=== PATIENT | male | born 1970 | race Caucasian/White ===

== ENCOUNTER → 2016-11-20 | Outpatient (CLI) | payer OTHER ==
[~2016-11-20] MED LIST: CALC05CR TOP; CIPR-250 PO; DRIS50002 PO; NORC5TAB PO; ROBA500T PO; TRAZ50TA4 PO; TRAZO50TA PO; TYLE325T5 PO; [UNRECOGNIZED DRUG - OTHER] TOP; [UNRECOGNIZED DRUG - REMARK] PO
[2016-11-20 13:47] LABS: BASO # 0.2 K/mm3 (0.0-0.2); BASO % 1.9 % (0.0-1.0); EOS # 0.4 K/mm3 (0.0-0.50); EOS % 3.6 % (0.0-3.0); LARGE UNSTAINED CELL # 0.3 K/mm3 (0.0-0.4); LARGE UNSTAINED CELL % 2.6 % (0.0-4.0); LYMPH # 3.4 K/mm3 (1.5-4.5); LYMPH % 26.8 % (24.0-44.0); MEAN CORPUSCULAR HEMOGLOBIN 31.6 pg (27.0-33.0); MEAN CORPUSCULAR HGB CONC 32.8 g/dl (32.0-36.5); MEAN CORPUSCULAR VOLUME 96.3 fl (80.0-96.0); MONO # 0.9 K/mm3 (0.0-0.8); MONO % 7.8 % (0.0-5.0); NEUTROPHILS # 6.7 K/mm3 (1.8-7.7); NEUTROPHILS % 57.3 % (36.0-66.0); PLATELET COUNT, AUTOMATED 229 k/mm3 (150-450); RED CELL DISTRIBUTION WIDTH 13.8 % (11.5-14.5); WHITE BLOOD COUNT 11.7 K/mm3 (4.0-10.0)
[2016-11-20 13:52] LABS: INR 0.97
[2016-11-20 14:16] LABS: ALBUMIN/GLOBULIN RATIO 1.25 (1.00-1.93); ALKALINE PHOSPHATASE 100 U/L (45-117); ALT/SGPT 26 U/L (12-78); ANION GAP 7 MEQ/L (8-16); AST/SGOT 13 U/L (15-37); BILIRUBIN,TOTAL 0.6 MG/DL (0.2-1.0); BLOOD UREA NITROGEN 10 MG/DL (7-18); CALCIUM LEVEL 9.5 MG/DL (8.5-10.1); CARBON DIOXIDE LEVEL 31 MEQ/L (21-32); CHLORIDE LEVEL 105 MEQ/L (98-107); CREATININE FOR GFR 1.05 MG/DL (0.70-1.30); GLOMERULAR FILTRATION RATE > 60.0 (>60); GLUCOSE, FASTING 104 MG/DL (70-105); POTASSIUM SERUM 4.4 MEQ/L (3.5-5.1); SODIUM LEVEL 143 MEQ/L (136-145); TOTAL PROTEIN 7.2 GM/DL (6.4-8.2)
== END ==
LOC: M LAB 12:44
PROVIDERS: ATTEND Neurological Surgery
DX: M47.896 Other spondylosis, lumbar region (principal)

== ENCOUNTER → 2016-12-06 | Day surgery (SDC) | payer OTHER ==
[~2016-12-06] VITALS: Ht 180.3 cm; Wt 97.5 kg
[~2016-12-06] MED LIST changes: +CEFUROXIME INJ 1.5 GM VIAL (J0697) As Ordered ONE; +CEFUROXIME SODIUM 1.5 GM in D5W MINI-BAG PLUS 50 ML IV ONE; +LIDOCAINE 1% MDV 20ML VIAL As Ordered ONE; +LIDOCAINE 2% INJ 100 MG/5 ML SDV (FOR ANES.) As Ordered ONE; +LR 1,000 ML IV SCH; +MIDAZOLAM INJ 2 MG/2 ML VIAL (J2250) As Ordered ONE; +NORCO, ANEXSIA 5/325MG TABLET (HYDROcodone/ACETAMINOPHEN) As Ordered ONE; +NORCO, ANEXSIA 5/325MG TABLET (HYDROcodone/ACETAMINOPHEN) PO PRN; +ONDANSETRON 4MG/2ML VIAL (J2405) As Ordered ONE; +ONDANSETRON 4MG/2ML VIAL (J2405) IV PRN; +PROPOFOL 200 MG/20 ML VIAL As Ordered ONE; +SEVOFLURANE INHAL SOLN 250 ML BTL As Ordered ONE; +dexameTHASONE 4 MG/ML 1ML VIAL (J1100) As Ordered ONE; +fentaNYL 100 MCG/2 ML INJECTION (J3010) As Ordered ONE; +fentaNYL 100 MCG/2 ML INJECTION (J3010) IV PRN; +methylPREDNISolone SUSP 40 MG/ML (DEPO-medrol) VIAL (J1030) As Ordered ONE; +methylPREDNISolone SUSP 40 MG/ML (DEPO-medrol) VIAL (J1030) XX ONE
[2016-12-06 11:00] VITALS: BP 117/79
--- NOTE | 2016-12-07 08:06 | RO ---
DATE OF PROCEDURE: 12/06/2016 PREPROCEDURE DIAGNOSIS: Right ulnar neuropathy, cubital tunnel level. POSTPROCEDURE DIAGNOSIS: Right ulnar neuropathy, cubital tunnel level. PROCEDURE: Release of the right ulnar nerve at the antecubital tunnel level with external neurolysis. SURGEON: Leonel Guillen MD HIGHBALLER: None. ANESTHESIA: General. FINDINGS: Please see my office note for detailed preoperative evaluation and discussions. The patient has symptomatic ulnar neuropathy at the elbow on the right. The patient was seen in the preoperative area with his ex-, who is also his caregiver. They both were aware of all options, risk, scope, expected outcome, sequelae and complications of the surgery were discussed with them. They understood that no guarantees of any kind were given. The risk of surgery included , persistence or worsening of symptoms, infection, bleeding, loss of vital bodily functions, and other catastrophic sequelae. The patient once again stated that there was no way he can live with these symptoms and is willing to take any or all risks for any possible benefit. Detailed discussions were held regarding postoperative care. At the patient's request, he was taken to the operating room. DESCRIPTION OF PROCEDURE: He was taken to the operating room where general anesthesia was given. The area of surgery was prepped and draped in the usual sterile fashion. A tourniquet was applied at 280 mmHg. The right upper extremity was exsanguinated and the tourniquet was applied at 280 mmHg. A curvilinear skin incision was given across the cubital tunnel. The alveolar layer was reached and incised, cut edges of the blood vessels were coagulated with bipolar cautery. The fascia was reached and opened, and so was the cubital ligament. There was perineural scarring and external neurolysis was done several centimeters proximal to the cubital ligament. The cubital ligament was hypertrophic and the nerve was quite torturous. Ulnar neurolysis were all removed and external neurolysis and decompression was undertaken until it was found to be free from any surrounding adipose or other tissues. Blood loss was negligible on account of tourniquet. The patient tolerated the procedure well and transferred to the recovery room in stable condition. Operative findings were discussed with the patient's partner in the waiting room.
== END | disposition home or self-care (01) ==
LOC: M SDC 06:29
PROVIDERS: ATTEND Neurological Surgery
DX: G56.21 Lesion of ulnar nerve, right upper limb (principal); M47.892 Other spondylosis, cervical region; M47.896 Other spondylosis, lumbar region; M54.81 Occipital neuralgia; G89.29 Other chronic pain; L40.9 Psoriasis, unspecified; F32.9 Major depressive disorder, single episode, unspecified; F17.290 Nicotine dependence, other tobacco product, uncomplicated
CPT/HCPCS: 64718; J0697; J1030; J1100; J2250; J2405; J3010

== ENCOUNTER → 2017-06-27 | Outpatient (REF) | payer OTHER ==
[~2017-06-27] MED LIST changes: -CEFUROXIME INJ 1.5 GM VIAL (J0697) As Ordered ONE; -CEFUROXIME SODIUM 1.5 GM in D5W MINI-BAG PLUS 50 ML IV ONE; +ESCI10TA2 PO; -LIDOCAINE 1% MDV 20ML VIAL As Ordered ONE; -LIDOCAINE 2% INJ 100 MG/5 ML SDV (FOR ANES.) As Ordered ONE; -LR 1,000 ML IV SCH; -MIDAZOLAM INJ 2 MG/2 ML VIAL (J2250) As Ordered ONE; +NAPR500T3 PO; +NORC1TAB4 PO; -NORC5TAB PO; -NORCO, ANEXSIA 5/325MG TABLET (HYDROcodone/ACETAMINOPHEN) As Ordered ONE; -NORCO, ANEXSIA 5/325MG TABLET (HYDROcodone/ACETAMINOPHEN) PO PRN; -ONDANSETRON 4MG/2ML VIAL (J2405) As Ordered ONE; -ONDANSETRON 4MG/2ML VIAL (J2405) IV PRN; -PROPOFOL 200 MG/20 ML VIAL As Ordered ONE; -SEVOFLURANE INHAL SOLN 250 ML BTL As Ordered ONE; +TRAZ50TA11 PO; -TRAZ50TA4 PO; +TYLE325C PO; +VIAG100T PO; -dexameTHASONE 4 MG/ML 1ML VIAL (J1100) As Ordered ONE; -fentaNYL 100 MCG/2 ML INJECTION (J3010) As Ordered ONE; -fentaNYL 100 MCG/2 ML INJECTION (J3010) IV PRN; -methylPREDNISolone SUSP 40 MG/ML (DEPO-medrol) VIAL (J1030) As Ordered ONE; -methylPREDNISolone SUSP 40 MG/ML (DEPO-medrol) VIAL (J1030) XX ONE
[2017-06-27 17:13] LABS: ALBUMIN 3.6 GM/DL (3.2-5.2); ALBUMIN/GLOBULIN RATIO 1.09 (1.00-1.93); ALKALINE PHOSPHATASE 87 U/L (45-117); ALT/SGPT 23 U/L (12-78); ANION GAP 8 MEQ/L (8-16); AST/SGOT 11 U/L (15-37); BILIRUBIN,TOTAL 0.6 MG/DL (0.2-1.0); BLOOD UREA NITROGEN 9 MG/DL (7-18); CALCIUM LEVEL 8.8 MG/DL (8.5-10.1); CARBON DIOXIDE LEVEL 26 MEQ/L (21-32); CHLORIDE LEVEL 111 MEQ/L (98-107); CREATININE FOR GFR 0.94 MG/DL (0.70-1.30); GLOMERULAR FILTRATION RATE > 60.0 (>60); GLUCOSE, FASTING 108 MG/DL (70-105); POTASSIUM SERUM 4.1 MEQ/L (3.5-5.1); SODIUM LEVEL 145 MEQ/L (136-145); TOTAL PROTEIN 6.9 GM/DL (6.4-8.2)
[2017-06-27 17:30] LABS: BASO % 0.5 % (0.0-1.0); EOS # 0.3 K/mm3 (0.0-0.50); LARGE UNSTAINED CELL # 0.3 K/mm3 (0.0-0.4); LARGE UNSTAINED CELL % 3.3 % (0.0-4.0); LYMPH # 2.5 K/mm3 (1.5-4.5); LYMPH % 32.9 % (24.0-44.0); MEAN CORPUSCULAR HEMOGLOBIN 33.8 pg (27.0-33.0); MEAN CORPUSCULAR HGB CONC 34.5 g/dl (32.0-36.5); MEAN CORPUSCULAR VOLUME 97.9 fl (80.0-96.0); MONO # 0.7 K/mm3 (0.0-0.8); MONO % 9.3 % (0.0-5.0); NEUTROPHILS # 3.8 K/mm3 (1.8-7.7); PLATELET COUNT, AUTOMATED 252 k/mm3 (150-450); RED CELL DISTRIBUTION WIDTH 13.1 % (11.5-14.5); WHITE BLOOD COUNT 7.6 K/mm3 (4.0-10.0)
== END ==
LOC: M SFHCPLAZ 13:04
PROVIDERS: ATTEND Student in an Organized Health Care Education/Training Program
DX: Z00.00 Encounter for general adult medical examination without abnormal findings (principal)

== ENCOUNTER → 2017-08-28 | Outpatient (REF) | payer OTHER | LOC: M SFHCPLAZ 15:18 | PROVIDERS: ATTEND Family Medicine | DX: Z11.4 Encounter for screening for human immunodeficiency virus [HIV] (principal) ==

== ENCOUNTER → 2017-08-28 | Outpatient (CLI) | payer OTHER ==
--- NOTE | 2017-10-01 00:38 | ECWPNPC ---
PATIENT NAME: MINA CAMACHO : 1970 GENDER: MALE VISIT DATE: 08/28/2017 DISCHARGE DATE: 08/28/17 1006 VISIT LOCKED DATE TIME: PHYSICIAN: MARTY WYNNE RESOURCE: MARTY WYNNE REASON FOR APPOINTMENT 1. NECK HISTORY OF PRESENT ILLNESS NEW PATIENT CONSULT: 47 Y/O MALE REFERRED BY PRIMARY CARE FOR PERSISTENT NECK PAIN.HISTORY OF FRACTURED NECK IN 1995 AFTER DIVING FOR BASEBALL.BEGAN TO HAVE SUCH SEVERE PAIN HE WAS SUICIDAL DUE TO UNCONTROLLED PAIN AND ADMITTED TO [facility] .AT THAT POINT HE BEGAN TO SEE PRIMARY [facility] AND THEY REFERRED TO DR. PARRA WHO REFERRED TO PAIN SOLUTIONS.HE HAD MULTIPLE INJECTIONS AT PAIN SOLUTIONS THAT WERE NOT HELPFUL.HAD CERVICAL SURGERY IN SEPTEMBER 2016.THIS WAS A C2-C7 CERVICAL FUSION DONE BY DR. PARRA.HE IS VAGUE ON IF THIS HELPED.HAD RIGHT ELBOW SURGERY DECEMBER [address] PARRA.FELL ON ICE IN JANUARY 2017,SUSTAINING HEAD INJURY AND HAD LOW BACK INJURY.REPORTS SIGNIFICANT AGGRVATION OF NECK PAIN AND SHOULDER PAIN AFTER THIS FALL.RATING PAIN VAS 8/10.DESCRIBES PAIN CONSTANT ACHING ECSPECIALLY IN NECK AND UPPER BACK.PAIN IS AGGREVATE BY MOVEMENT AND RELIEVED SOMEWHAT AT REST.DENIES RECENT FEVER,ILLNESS OR WEIGHT LOSS.DENIES BOWEL OR BADDER INONTINENCE. WHEN DID YOUR PAIN FIRST START? . BRIEFLY DESCRIBE HOW YOUR PAIN STARTED? . HOW DOES YOUR PAIN CHANGE WITH TIME? . DOES YOUR PAIN AWAKEN YOU FROM SLEEP? . HOW MANY HOURS OF SLEEP DO YOU NORMALLY GET? . ANY DIAGNOSTIC TESTING? . FACILITY WHERE TESTS WERE DONE? ____. PAIN TREATMENT TREATMENT YES CANCER HAVE YOU EVER HAD ANY TYPE OF CANCER?NO NO. PAIN SCREENING: PATIENT HAS A COMPLAINT OF ACUTE OR CHRONIC PAIN :YES FALL RISK SCREENING: SCREENING :NO FALLS IN THE PAST YEAR COON INVENTORY: PATIENT HAS UPCOMING APT. WITH MENTAL HEALTH.DENIES SUICIDAL OR HOMICIDAL THOUGHTS TODAY. QUESTIONNAIRE ASSESSEDYES SCORE VALUE CALCULATED YES SCORE:25 CURRENT MEDICATIONS TAKING NAPROXEN 500 MG TABLET 1 TABLET NEEDED ORALLY EVERY 12 HRS TAKING ESCITALOPRAM OXALATE 10 MG TABLET 1 TABLET ORALLY ONCE A DAY NOT-TAKING FLUTICASONE PROPIONATE 50 MCG/ACT SUSPENSION 1 SPRAY IN EACH NOSTRIL NASALLY ONCE A DAY NOT-TAKING NASAL MIST 0.9 % AEROSOL SOLUTION 2 SPRAYS INHALATION FOUR TIMES DAILY NEEDED NOT-TAKING FLUOCINONIDE 0.05 % CREAM DIRECTED PRN UNTIL PLAQUES GET BETTER EXTERNALLY BID NOT-TAKING VIAGRA 100 MG TABLET 1 TABLET NEEDED ORALLY DIRECTED NOT-TAKING CYMBALTA 30 MG CAPSULE DELAYED RELEASE PARTICLES 1 CAPSULE ORALLY ONCE DAILY FOR 7 DAYS. THEN, TWICE DAILY THEREAFTER. NOT-TAKING LYRICA 75 MG CAPSULE 1 CAPSULE ORALLY TWICE A DAY MEDICATION LIST REVIEWED AND RECONCILED WITH THE PATIENT PAST MEDICAL HISTORY ARCE PERFORATED TM WITH HEARING LOSS DDD ACL REPLACEMENT TOBACCO NECK PAIN ALLERGIES N.K.D.A. SURGICAL HISTORY SKIN GRAFT BACK FOR THE SIDE OF FACE AND NECK 1996 PERFORATED RIGHT EAR DRUM REPAIR AGE 4 ACL REPLACEMENT LEFT KNEE 1997 MULTI LEVEL CERVICAL FUSION 09/07/2016 RIGHT ELBOW NERVE REMOVED 12/2016 FAMILY HISTORY FATHER: UNKNOWN MOTHER: UNKNOWN ADOPTED AT . SOCIAL HISTORY GENERAL: TOBACCO USE ARE YOU A:CURRENT SMOKER ARE YOU INTERESTED IN QUITTING?THINKING ABOUT QUITTING COUNSELED THE PATIENT ON SMOKING CESSATION, EDUCATION [id number]/24/2017 PATIENT COUNSELED ON THE DANGERS OF TOBACCO USE AND URGED TO QUIT:08/28/2017 ALCOHOL SCREENING POINTS2 INTERPRETATIONNEGATIVE RECREATIONAL DRUG USE DRUG USE?NO RELIGIOUS [id number] YAZDANISM LANGUAGE LANGUAGES SPOKEN:[employer] OF [place] LEARNING BARRIERS / SPECIAL NEEDS BARRIERS TO LEARNING?NO HEARING IMPAIRED?YES VISION IMPAIRED?NO COGNITIVELY IMPAIRED?NO READINESS TO LEARN?YES LEARNING PREFERENCES?NO LEARNING CAPABILITIES PRESENT?YES EMOTIONAL BARRIERS?NO SPECIAL DEVICES?NO MEDICAL RADIATION TECH NEEDED?NO PAIN CLINIC PFS, CLERGY, PUBLIC HEALTH REFERRALS PFS REFERRAL NEEDED?NO CLERGY REFERRAL NEEDED?NO PUBLIC HEALTH REFERRAL NEEDED?NO WAS THE PROVIDER NOTIFIED OF ANY PERTINENT INFO?NO HAS THE PATIENT BEEN EDUCATED REGARDING HIS/HER PLAN OF CARE?YES HAS THE PATIENT BEEN EDUCATED REGARDING PAIN, THE RISK FOR PAIN, THE IMPORTANCE OF EFFECTIVE PAIN MANAGEMENT, AND THE PAIN ASSESSMENT PROCESS?YES PATIENT: ____. ADVANCE DIRECTIVES HEALTH CARE PROXY?NO WOULD YOU LIKE MORE INFORMATION?NO DO YOU HAVE A DNR?NO WOULD YOU LIKE MORE INFORMATION?NO LIVING WILL?NO WOULD YOU LIKE MORE INFORMATION?NO POWER OF ORDAINED MINISTER?NO WOULD YOU LIKE MORE INFORMATION?NO HOSPITALIZATION/MAJOR DIAGNOSTIC PROCEDURE ABOVE WITH SURGERIES REVIEW OF SYSTEMS REVIEWED BY: PROVIDER: MARTY WYNNE NATURAL FOODS CLERK . CONSTITUTIONAL: ANY CHANGE IN YOUR MEDICAL CONDITION? NO . CHILLS NO . FEVER NO . INFECTION: DO YOU HAVE NEW INFECTIONS? NO . DO YOU HAVE HISTORY OF MRSA? NO . MUSCULOSKELETAL: ANY NEW PATTERNS OF PAIN OR NUMBNESS? NO . SYTEMIC LUPUS NO . GASTROENTEROLOGY: ANY NEW CHANGE IN BOWEL CONTROL? NO . BARRETTS ESOPHAGUS NO . CIRRHOSIS NO . HEPATITIS NO . LIVER FAILURE NO . ACID REFLUX NO . UNEXPLAINED WEIGHT LOSS NO . GENITOURINARY: ANY NEW CHANGE IN BLADDER CONTROL? NO . IS THERE A CHANCE YOU COULD BE ? NO . HEMATOLOGY/LYMPH: DO YOU TAKE ANY BLOOD THINNERS? (FOR EXAMPLE- COUMADIN, PLAVIX, AGGRENOX, PLATEL, PRADAXA, OR XARELTO) NO . WHEN WAS YOUR LAST DOSE? DATE: TIME: . LOW PLATELET COUNT NO . SICKLE CELL DISEASE NO . VON WILLIEBRANDS NO . FACTOR V LEIDEN NO . THALLASEMIA NO . ANEMIA NO . EASY BRUISING NO . NEUROLOGY: HAVE YOU FALLEN IN THE PAST 6 MONTHS? NO . ANY NEW EXTREMITY NUMBNESS OR WEAKNESS? NO . HEAD INJURY NO . DEMENTIA NO . CEREBRAL PALSY NO . MULTIPLE SCLEROSIS NO . DIZZINESS NO . HEADACHE NO . STROKES NO . VERTIGO NO . CARDIOLOGY: DO YOU HAVE A PACEMAKER OR DEFIBRILLATOR? NO . ANGINA NO . HEART ATTACK NO . HEART SURGERY NO . CONGESTIVE HEART FAILURE/FLUID OVERLOAD NO . CHEST PAIN NO . HIGH BLOOD PRESSURE NO . IRREGULAR HEART BEAT NO . RESPIRATORY: HAVE YOU BEEN SICK IN THE PAST WEEK? NO . FEVER NO . FLU LIKE SYMPTOMS? NO . CPAP NO . BYPAP NO . ASTHMA NO . EMPHYSEMA NO . CHRONIC LUNG DISEASES NO . SHORTNESS OF BREATH ON EXERTION NO . DO YOU USE ANY TYPE OF TOBACCO (SMOKE, SMOKELESS, CHEW)? YES . COUGH NO . SNORING NO . INTEGUMENTARY: DO YOU HAVE ANY RASHES OR OPEN SORES? NO . ALLERGIC/IMMUNO: ARE YOU ALLERGIC TO SHELLFISH OR IV DYE? NO . ANY NEW ALLERGIES? NO . PSYCHIATRIC: DO YOU HAVE THOUGHTS OF HURTING YOURSELF OR SOMEONE ELSE? NO . ARE YOU ABUSED, NEGLECTED, OR IN AN UNSAFE ENVIRONMENT? NO . ENDOCRINOLOGY: ARE YOU DIABETIC? NO . THYROID DISORDER NO . OTHER: DO YOU NEED ANY PRESCRIPTIONS? NO . IF YES, PLEASE LIST: ____ . ANY NEW PROBLEMS WITH YOUR MEDICATIONS? NO . WHEN DID YOU LAST EAT? ____ . WHEN DID YOU LAST DRINK? ____ . WHAT DID YOU LAST DRINK? ____ . NAME OF PERSON DRIVING YOU HOME? ____ . DO YOU HAVE ANY OTHER QUESTIONS OR CONCERNS NO . VITAL SIGNS WT 210 LBS, HT 71 IN, BMI 29.29 INDEX, BP 122/71 MM HG, HR 80 /MIN, RR 18 /MIN, TEMP 97.9 F, OXYGEN SAT % 97%, SAFE IN ENV? (Y/N) YES, NA INITIALS AW 0850, REVIEWED BY: LORI. EXAMINATION GENERAL EXAMINATION: GENERAL APPEARANCE:COMFORTABLE . PSYCHAFFECT NORMAL . LUNGS:LUNG RENTERIA ARE CLEAR TO AUSCULTATION BILATERALLY. GOOD MOVEMENT OF AIR . HEART:S1, S2 IN A REGULAR RATE AND RHYTHM. NO SIGNIFICANT MURMURS, RUBS OR GALLOPS NOTED . MUSCULOSKELETAL:MUSCLE STRENGTH TESTING 5/5 BILATERAL UPPER AND LOWER EXTREMITIES , TRIGGER POINTS:, ELICITED WITH PALPATION OVER CERVICAL SPINOUS PROCESSES AND ACROSS THE TRAPEZIUS MUSCLES BILATERALLY. RESTRICTION OF ROM IS NOTED. . JOINTS:BILATERAL, SHOULDER , PAIN , AT REST , WITH RANGE OF MOTION . NEUROLOGIC EXAM:DTRS 1-2+ IN ALL 4 EXTREMITIES. DIAGNOSTIC TESTS REVIEWEDCERVICAL [id number]. ASSESSMENTS CERVICALGIA - M54.2 (PRIMARY) CERVICAL POST-LAMINECTOMY SYNDROME - M96.1 MYALGIA - M79.1 TREATMENT CERVICALGIA NOTES: TPI NECK BILAT. PREVENTIVE MEDICINE PAIN CLINIC TEACHING: PROCEDURE TEACHING PRE-PROCEDURE TEACHING DONE. PATIENT HAS HAD TPIS IN THE PAST AND DOES NOT WANT ANY ADDITIONAL INFORMATION. QUESTIONS ANSWERED AND PATIENT VERBALIZES UNDERSTANDING.. PROCEDURE CODES FA211 ESTABILISHED PATIENT [facility] CHARGE DISPOSITION & COMMUNICATION FOLLOW UP 2WK POST (REASON: TPI NECK BILAT/SIGN RECORDS RELEASE) ELECTRONICALLY SIGNED BY GRIFFIN SCHAEFFER ON 09/30/2017 AT 10:59 AM EST DISCLAIMER : THIS IS A VISIT SUMMARY EXTRACTED FROM THE [employer] CHART. IT IS NOT A COPY OF THE [employer] PROGRESS NOTE. JULIANA
== END ==
LOC: M PAIN 09:00
PROVIDERS: ATTEND Nurse Practitioner Family
DX: M54.2 Cervicalgia (principal); M96.1 Postlaminectomy syndrome, not elsewhere classified; M79.1 Myalgia; F17.210 Nicotine dependence, cigarettes, uncomplicated; F41.8 Other specified anxiety disorders; W00.9XXS Unspecified fall due to ice and snow, sequela; Y92.89 Other specified places as the place of occurrence of the external cause; Y93.89 Activity, other specified; Y99.8 Other external cause status; Z79.899 Other long term (current) drug therapy

== ENCOUNTER → 2017-09-03 | Outpatient (CLI) | payer OTHER ==
--- NOTE | 2017-09-19 01:00 | ECWPNPC ---
PATIENT NAME: MINA CAMACHO : 1970 GENDER: MALE VISIT DATE: 09/03/2017 DISCHARGE DATE: 09/03/17 1455 VISIT LOCKED DATE TIME: PHYSICIAN: HARJINDER NICHOLSON RESOURCE: HARJINDER NICHOLSON REASON FOR APPOINTMENT 1. CERVICAL PAIN HISTORY OF PRESENT ILLNESS HISTORY OF PRESENT ILLNESS: PAIN THE PATIENT DESCRIBES THE PAIN... 47 YEAR OLD MALE PATIENT WITH HISTORY OF CHRONIC NECK PAIN. PATIENT DESCRIBE THE PAIN TENDER, SORE, AND HAVING IT ALL THE TIME WITH A PAIN SCORE OF 9/10. PATIENT REPORTS HAVING DIFFICULTIES SWALLOWING. PATIENT IS CURRENTLY USING NAPROXEN AND TYLENOL TO AID IN RELIEF. PATIENT STATES THAT ANY TYPE OF ACTIVITY INCREASES THE PAIN IN THE CERVICAL AREA. PATIENT DENIES UNEXPLAINABLE WEIGHT LOSS, FEVER, CHILLS, NEW CHANGES ON HER URINARY OR BOWEL CONTROL. FALL RISK SCREENING: SCREENING :NO FALLS IN THE PAST YEAR CURRENT MEDICATIONS TAKING TYLENOL EXTRA STRENGTH 500 MG TABLET 2 TABLETS NEEDED ORALLY EVERY 6 HRS, NOTES: 09/02/17 TAKING NAPROXEN 500 MG TABLET 1 TABLET NEEDED ORALLY EVERY 12 HRS TAKING ESCITALOPRAM OXALATE 10 MG TABLET 1 TABLET ORALLY ONCE A DAY NOT-TAKING LYRICA 75 MG CAPSULE 1 CAPSULE ORALLY TWICE A DAY, NOTES: INSURANCE WOULD NOT COVER NOT-TAKING FLUTICASONE PROPIONATE 50 MCG/ACT SUSPENSION 1 SPRAY IN EACH NOSTRIL NASALLY ONCE A DAY NOT-TAKING NASAL MIST 0.9 % AEROSOL SOLUTION 2 SPRAYS INHALATION FOUR TIMES DAILY NEEDED NOT-TAKING FLUOCINONIDE 0.05 % CREAM DIRECTED PRN UNTIL PLAQUES GET BETTER EXTERNALLY BID NOT-TAKING CYMBALTA 30 MG CAPSULE DELAYED RELEASE PARTICLES 1 CAPSULE ORALLY ONCE DAILY FOR 7 DAYS. THEN, TWICE DAILY THEREAFTER., NOTES: INSURANCE DID NOT APPROVE UNKNOWN VIAGRA 100 MG TABLET 1 TABLET NEEDED ORALLY DIRECTED MEDICATION LIST REVIEWED AND RECONCILED WITH THE PATIENT PAST MEDICAL HISTORY ARCE PERFORATED TM WITH HEARING LOSS DDD ACL REPLACEMENT TOBACCO NECK PAIN ALLERGIES NO[ALLERGIES VERIFIED] SURGICAL HISTORY SKIN GRAFT BACK FOR THE SIDE OF FACE AND NECK 1996 PERFORATED RIGHT EAR DRUM REPAIR AGE 4 ACL REPLACEMENT LEFT KNEE 1998 MULTI LEVEL CERVICAL FUSION 09/07/2016 RIGHT ELBOW NERVE MOVED 12/2016 HOSPITALIZATION/MAJOR DIAGNOSTIC PROCEDURE ABOVE WITH SURGERIES REVIEW OF SYSTEMS REVIEWED BY: PROVIDER: HARJINDER NICHOLSON MD . CONSTITUTIONAL: ANY CHANGE IN YOUR MEDICAL CONDITION? LAST NIGHT STRETCHED AND FELT A "POPPING" IN HIS LEFT NECK. IT SWELLED UP AND HE TOOK TYLENOL.NOW SWELLING IS GONE BUT HAVING TROUBLE SWALLOWING. . CHILLS NO . FEVER NO . INFECTION: DO YOU HAVE NEW INFECTIONS? NO . DO YOU HAVE HISTORY OF MRSA? NO . MUSCULOSKELETAL: ANY NEW PATTERNS OF PAIN OR NUMBNESS? NO . GASTROENTEROLOGY: ANY NEW CHANGE IN BOWEL CONTROL? NO . GENITOURINARY: ANY NEW CHANGE IN BLADDER CONTROL? NO . IS THERE A CHANCE YOU COULD BE ? NO . HEMATOLOGY/LYMPH: DO YOU TAKE ANY BLOOD THINNERS? (FOR EXAMPLE- COUMADIN, PLAVIX, AGGRENOX, PLATEL, PRADAXA, OR XARELTO) NO . WHEN WAS YOUR LAST DOSE? DATE: TIME: . NEUROLOGY: HAVE YOU FALLEN IN THE PAST 6 MONTHS? NO . ANY NEW EXTREMITY NUMBNESS OR WEAKNESS? NO . CARDIOLOGY: DO YOU HAVE A PACEMAKER OR DEFIBRILLATOR? NO . RESPIRATORY: HAVE YOU BEEN SICK IN THE PAST WEEK? NO . FEVER NO . FLU LIKE SYMPTOMS? NO . COUGH NO . INTEGUMENTARY: DO YOU HAVE ANY RASHES OR OPEN SORES? NO . ALLERGIC/IMMUNO: ARE YOU ALLERGIC TO SHELLFISH OR IV DYE? NO . ANY NEW ALLERGIES? NO . PSYCHIATRIC: DO YOU HAVE THOUGHTS OF HURTING YOURSELF OR SOMEONE ELSE? NO . ARE YOU ABUSED, NEGLECTED, OR IN AN UNSAFE ENVIRONMENT? NO . ENDOCRINOLOGY: ARE YOU DIABETIC? NO . OTHER: DO YOU NEED ANY PRESCRIPTIONS? NO . IF YES, PLEASE LIST: ____ . ANY NEW PROBLEMS WITH YOUR MEDICATIONS? NO . WHEN DID YOU LAST EAT? 2129 . WHEN DID YOU LAST DRINK? 1129 . WHAT DID YOU LAST DRINK? [place] . NAME OF PERSON DRIVING YOU HOME? YELLOW [employer] . DO YOU HAVE ANY OTHER QUESTIONS OR CONCERNS NO . VITAL SIGNS WT 228.2 LBS, HT 71 IN, BMI 31.82 INDEX, BP 124/85 MM HG, HR 82 /MIN, RR 16 /MIN, TEMP 97.6 F, OXYGEN SAT % 98%, NA INITIALS TL 1344, REVIEWED BY: NL. EXAMINATION : PATIENT IS ALERT O X 3 AND COOPERATIVE. TENDERNESS IN THE CERVICAL AREA AND PARASPINAL MUSCLE GROUP. BANDS OF TISSUES, RESTRICTION OF MOVEMENT, AND PRESENCE OF TRIGGER POINTS IN THE CERVICAL AREA. ASSESSMENTS MYALGIA - M79.1 (PRIMARY) TREATMENT MYALGIA NOTES: WE DISCUSSED SEVERAL ISSUES WITH MR. CAMACHO'S PAIN MANAGEMENT CASE. AT THIS TIME THE PATIENT WILL CONTINUE WITH THE SAME MEDICATION REGIME BEFORE. DUE TO THE DIFFICULTIES SWALLOWING I WOULD LIEK THE PATIENT TO BE SEEN AT THE ED. DUE TO THE BANDS OF TISSUE I WOULD LIEK TO PROCEED WITH TRIGGER POINT INJECTIONS. WE DISCUSSED THE RISKS, BENENFITS, AND ALTNERATIVES OF THE INJECTION AND THE PATIENT WOULD LIKE TO PROCEED AT THIS TIME. PATIENT WILL NEED A CLEAN BILL OF HEALTH FROM THE ED TO PROCEED WITH THE TRIGGER POINT INJECTIONS. INSTRUCTIONS WERE GIVEN, QUESTIONS WERE ANSWERED, PATIENT REPORTS UNDERSTANDING AND AGREES WITH THE PLAN. I, LIMA ROCHA, DOCUMENTED THE ABOVE INFORMATION ACTING A SCRIBE FOR DR. NICHOLSON. I HAVE REVIEWED THE ABOVE DOCUMENT, WRITTEN BY LIMA CHESTER AND I VERIFY THAT IT IS ACCURATE. PROCEDURE CODES FA211 ESTABILISHED PATIENT [facility] FACILITY CHARGE G8427 DOC MEDS VERIFIED W/PT OR RE G8730 PAIN ASSESS POS TOOL F/U PLAN DOC DISPOSITION & COMMUNICATION FOLLOW UP TPI AFTER APPROVAL ELECTRONICALLY SIGNED BY HARJINDER NICHOLSON MD ON 09/18/2017 AT 12:16 PM EST DISCLAIMER : THIS IS A VISIT SUMMARY EXTRACTED FROM THE [employer] CHART. IT IS NOT A COPY OF THE [employer] PROGRESS NOTE. WILFREDOD
== END ==
LOC: M PAIN 14:15
PROVIDERS: ATTEND Anesthesiology
DX: M79.1 Myalgia (principal); M54.2 Cervicalgia; G89.29 Other chronic pain; R13.10 Dysphagia, unspecified; Z79.899 Other long term (current) drug therapy

== ENCOUNTER → 2017-10-23 | Outpatient (CLI) | payer OTHER ==
--- NOTE | 2017-10-23 11:12 | REP ---
MRI CERVICAL SPINE WITHOUT CONTRAST: HISTORY: Cervical radiculitis. COMPARISON: Soft tissue neck CT, 09/03/2017. TECHNIQUE: Sagittal and axial T1-and T2-weighted scans are acquired in the usual fashion with and without fat saturation. Sequences include spin echo, turbo spin-echo, and STIR imaging sequences. MRI FINDINGS: There is reversal of the normal cervical lordosis. There is magnetic field susceptibility artifact emanating from the ventral aspect of the cervical canal in this patient who is status post fusion plating across the C4 through C7 disc levels. There is a small postoperative fluid collection in the fused C5-6 disc and the adjacent superior aspect of C6. This measures 13 mm in greatest diameter. This does not extend into the spinal canal. Cervical cord is normal in course, caliber, and signal intensity on T1- and T2-weighted scans. Craniocervical junction is unremarkable. Axial and sagittal images at C2-3 show no significant finding. At C3-4, there is a moderate-sized central disc protrusion effacing the ventral subarachnoid space and flattening the ventral margin of the cord. There is left-sided uncovertebral spurring and neural foraminal narrowing at C3-4. At C4-5, there is some residual posterior osteophytic ridging. Canal size is borderline. No cord compression is seen. At C5-C6, there is no evidence of cord compression. C6-7 is unremarkable as well. At C7-T1, there is no significant abnormality. IMPRESSION: Status post C4 through C7 fusion. Small to moderate-sized central disc protrusion at C3-4. Reversal of the normal cervical lordosis. Signed by Britton Lewis MD 10/23/2017 02:23 P
== END ==
LOC: M RAD 09:34
PROVIDERS: ATTEND Student in an Organized Health Care Education/Training Program
DX: M54.12 Radiculopathy, cervical region (principal); Z98.890 Other specified postprocedural states

== ENCOUNTER → 2017-12-31 | Outpatient (CLI) | payer OTHER ==
[~2017-12-31] MED LIST changes: -CALC05CR TOP; -CIPR-250 PO; -DRIS50002 PO; -ESCI10TA2 PO; +ISOVUE-370 76% 100ML VIAL (Q9967) As Ordered; -NAPR500T3 PO; -NORC1TAB4 PO; -ROBA500T PO; -TRAZ50TA11 PO; -TRAZO50TA PO; -TYLE325C PO; -TYLE325T5 PO; -VIAG100T PO; -[UNRECOGNIZED DRUG - OTHER] TOP; -[UNRECOGNIZED DRUG - REMARK] PO
== END ==
LOC: M LAB 12:11
DX: R63.5 Abnormal weight gain (principal); Z98.1 Arthrodesis status
CPT/HCPCS: Q9967

== ENCOUNTER 2018-01-28 14:50 | Emergency (ER) | payer OTHER, MEDICAID ==
[2018-01-28] MEDS: PERCOCET 5MG/325MG TAB PO (17:15)
== END 2018-01-28 19:21 | disposition home or self-care (01) ==
LOC: M ED 14:50
DX: M54.2 Cervicalgia (principal); G89.29 Other chronic pain; F32.9 Major depressive disorder, single episode, unspecified; F17.210 Nicotine dependence, cigarettes, uncomplicated; Z79.899 Other long term (current) drug therapy
CPT/HCPCS: 72125

== ENCOUNTER → 2018-02-22 | Outpatient (REF) | payer OTHER, MEDICAID ==
[2018-02-22 13:56] LABS: AMPHETAMINES URINE REFLEX NEGATIVE (NEGATIVE); BARBITURATES URINE REFLEX NEGATIVE (NEGATIVE); BENZODIAZEPINES URINE REFLEX NEGATIVE (NEGATIVE); COCAINE METABOLITE URINE REFLE NEGATIVE (NEGATIVE); METHADONE URINE REFLEX NEGATIVE (NEGATIVE); OPIATES URINE REFLEX NEGATIVE (NEGATIVE); PHENCYCLIDINE URINE REFLEX NEGATIVE (NEGATIVE)
[2018-02-22 14:01] LABS: CANNABINOIDS URINE REFLEX PENDING CONFIRMATION (NEGATIVE)
[2018-02-26 10:14] LABS: Cannabinoid Positive (.); GC Carboxy THC >300 ng/mL (Cutoff=10)
== END ==
LOC: M OUTALCOH 12:48
DX: F10.10 Alcohol abuse, uncomplicated (principal)
CPT/HCPCS: 80349

== ENCOUNTER → 2018-10-22 | Outpatient (CLI) | payer OTHER ==
[~2018-10-22] MED LIST changes: +BUPR150T5; +CALC05CR TOP; +CIPR-250 PO; +DRIS50003 PO; +ESCI10TA2 PO; -ISOVUE-370 76% 100ML VIAL (Q9967) As Ordered; +NAPR-885 PO; +NORC1TAB4 PO; +ROBA500T PO; +TRAM50TA2; +TRAZ-160 PO; +TRAZO50TA PO; +TYLE325C PO; +TYLE325T5 PO; +VIAG100T PO; +[UNRECOGNIZED DRUG - OTHER] TOP; +[UNRECOGNIZED DRUG - REMARK] PO
--- NOTE | 2018-10-22 10:54 | REP ---
CT CERVICAL SPINE WITHOUT CONTRAST: HISTORY: Chronic neck pain. COMPARISON: 01/28/2018. The patient is status post C4-7 anterior spinal fusion. A fixation plate and bone graft material are present. A disc bulge with associated osteophyte formation is present at the C3-4 level. Small posterior osteophytes are present at the C4-5, C5-6, and C6-7 levels. There is minimal narrowing of the spinal canal. Uncinate process hypertrophy is present at the C3-4 through C6-7 levels. This produces minimal to moderate narrowing of the neural foramina. The C 7-T1 intervertebral disc is decreased in height consistent with disc degeneration. There is no subluxation. There is loss of the normal lordotic curve. IMPRESSION: 1. The patient is status post C4-7 anterior spinal fusion. There is anatomic alignment. 2. There is cervical spondylosis at the C3-4 through C7-T1 levels. There is no significant change compared to the previous study. Electronically Signed by Reece Ferrer MD 10/22/2018 10:57 A
--- NOTE | 2018-10-23 04:23 | REP ---
Clinical: Chronic neck pain. Technique: AP, lateral, flexion/extension, bilateral oblique, and open-mouth views of the cervical spine. Comparison: 09/03/2017. Findings: Straightening of normal lordosis related to anterior fusion at the C4 through C7 level along with reversal of normal lordosis at the C3-4 level remain stable and unchanged compared to prior examination. No acute fracture / compression injury or subluxation. Prevertebral soft tissues are normal. Spinous processes are intact. Impression: Stable postsurgical changes. Electronically Signed by Josue Loredo MD 10/23/2018 04:15 A
== END ==
LOC: M RAD 09:15
PROVIDERS: ATTEND Neurological Surgery
DX: G89.29 Other chronic pain (principal); M54.2 Cervicalgia; Z98.1 Arthrodesis status; M47.892 Other spondylosis, cervical region

== ENCOUNTER → 2019-01-09 | Outpatient (CLI) | payer OTHER, MEDICAID ==
--- NOTE | 2019-01-09 20:50 | REP ---
Clinical: Status post spinal fusion. Technique: AP and lateral views of the cervical spine. Findings: Evidence for anterior and posterior fusion. Alignment is maintained. Vertebral bodies appear grossly intact. Prevertebral soft tissues are normal. No significant subcutaneous emphysema appreciated. Impression: Evidence for prior anterior and posterior fusion. Electronically Signed by Josue Loredo MD 01/09/2019 08:42 P
== END ==
LOC: M RAD 14:25
PROVIDERS: ATTEND Neurological Surgery
DX: G89.29 Other chronic pain (principal); Z98.1 Arthrodesis status

== ENCOUNTER 2019-02-15 08:29 | Inpatient (IN) | payer MEDICAID, OTHER ==
[~2019-02-15] VITALS: Ht 180.3 cm; Wt 97.7 kg
[~2019-02-15 08:29] MED LIST changes: -CALC05CR TOP; +DOVO0.007 TOP; -NORC1TAB4 PO; +NORC1TAB7 PO; -TRAM50TA2; +TRAM50TA2 PO; +TRAZ1TAB6 PO; -TRAZO50TA PO
[2019-02-15] MEDS ORDERED: TRAZ-163 PO (08:37)
[2019-02-15] MEDS ORDERED: TIZA2TA PO (08:37)
[2019-02-15] MEDS ORDERED: GABA600T4 PO (08:37)
[2019-02-15] MEDS ORDERED: BANO25CA PO (08:37)
[2019-02-15] MEDS ORDERED: CITA40TA6 PO (08:37)
[2019-02-15] MEDS ORDERED: BETA0.0543 TOP (08:37)
[2019-02-15 09:11] LABS: BASO # 0.1 10^3/uL (0.0-0.2); BASO % 0.3 % (0.0-1.0); HEMATOCRIT 50.1 % (42.0-52.0); HEMOGLOBIN 16.6 g/dl (13.5-17.5); LYMPH # 1.3 10^3/uL (1.5-4.5); LYMPH % 5.5 % (24.0-44.0); MEAN CORPUSCULAR HEMOGLOBIN 31.8 pg (27.0-33.0); MEAN CORPUSCULAR HGB CONC 33.1 g/dl (32.0-36.5); MONO # 1.1 10^3/uL (0.0-0.8); MONO % 4.5 % (0.0-5.0); NEUTROPHILS # 20.8 10^3/uL (1.8-7.7); NEUTROPHILS % 89.2 % (36.0-66.0); PLATELET COUNT, AUTOMATED 264 10^3/uL (150-450); RED BLOOD COUNT 5.22 10^6/uL (4.30-6.10); WHITE BLOOD COUNT 23.4 10^3/uL (4.0-10.0)
[2019-02-15] MEDS ORDERED: ONDANSETRON 4MG/2ML VIAL (J2405) IV ONE ×2 (09:15→11:00)
[2019-02-15] MEDS ORDERED: NS 1,000 ML IV ONE (09:15)
[2019-02-15] MEDS ORDERED: MORPHINE 4 MG/ML 1ML VIAL/SYRINGE (J2270) IV ONE ×2 (09:30→11:00)
[2019-02-15 09:31] LABS: ALBUMIN 4.1 GM/DL (3.2-5.2); ALT/SGPT 25 U/L (12-78); AMYLASE 32 U/L (25-115); BILIRUBIN,DIRECT 0.1 MG/DL (0.0-0.2); BILIRUBIN,TOTAL 0.6 MG/DL (0.2-1.0); BLOOD UREA NITROGEN 19 MG/DL (7-18); CALCIUM LEVEL 9.6 MG/DL (8.5-10.1); CARBON DIOXIDE LEVEL 25 MEQ/L (21-32); CHLORIDE LEVEL 107 MEQ/L (98-107); CK-MB VALUE MASS < 1.0 NG/ML (<3.6); CPK CREATINE PHOSPHOKINASE 95 U/L (39-308); GLOMERULAR FILTRATION RATE 45.6 (>56); GLUCOSE, FASTING 187 MG/DL (70-100); LIPASE 69 U/L (73-393); MB/CK RELATIVE INDEX 1.05 (< OR =4); POTASSIUM SERUM 4.6 MEQ/L (3.5-5.1); SODIUM LEVEL 143 MEQ/L (136-145); TOTAL PROTEIN 7.6 GM/DL (6.4-8.2); TROPONIN I < 0.02 NG/ML (< 0.10)
[2019-02-15] MEDS: GASTROGRAFIN SOLUTION 30ML PO SCH ×2 (09:50→13:00)
[2019-02-15 09:51] LABS: INFLUENZA A AMPLIFICATION NEGATIVE (NEGATIVE); INFLUENZA B AMPLIFICATION NEGATIVE (NEGATIVE)
--- NOTE | 2019-02-15 10:12 | REP ---
Chest x-ray: Two views. History: 6-day history of productive cough. Comparison chest x-ray: August 10, 2016. Findings: The patient is status post lower cervical spine fusion plating in the interval since the 2016 study. There is no severely low level of inspiration. There are linear densities in the bases bilaterally. The left base atelectasis is seen which may be recurrent as a similar density was seen on the 2016 prior study. The discoid atelectasis in the right base is new. Pulmonary vasculature is not increased. No pleural effusion is seen. Impression: Bi basilar fibro atelectatic changes, new on the right and new or recurrent on the left. Status post cervical spine fusion. Electronically Signed by Britton Lewis MD 02/15/2019 02:26 P
[2019-02-15] MEDS ORDERED: PROMETHAZINE INJ 25 MG/ML VIAL (J2550) IV ONE (11:30)
--- NOTE | 2019-02-15 12:56 | REP ---
CT abdomen and pelvis without IV or oral contrast: History: Left lower quadrant pain. Comparison CT study is from November 23, 2007. CT findings: Preliminary digital cableway operator radiograph is unremarkable. Bowel gas pattern is normal. The lung bases show an area of plate-like atelectasis in the left lower lobe. There is minimal plate-like atelectasis in the right middle lobe as well. The lung bases are otherwise clear. No pleural effusion is seen. There is mild fatty infiltration of the liver. There is some higher attenuation material in the dependent portion the gallbladder which may be sludge. No adrenal lesion is seen on either side. The pancreas is unremarkable. There is moderate left-sided hydronephrosis. Periureteral and perinephric edema is seen. Hydronephrosis is secondary to an obstructive calculus in the proximal ureter at the level lower pole of the left kidney. This calculus measures 6 mm in greatest diameter. There is a tiny intrarenal calculus at the mid pole level of the left kidney. No right renal calculus is seen. No right-sided hydronephrosis seen. No bladder calculus is seen. There are dystrophic calcifications in the prostate. A normal appendix is seen. Small and large intestinal bowel loops are unremarkable. Impression: Moderate left-sided hydronephrosis due to a 6 mm proximal ureteral calculus on the left side located at the level of the lower pole of the left kidney. Left lower lobe and right middle lobe plate-like atelectasis noted in the lungs. Electronically Signed by Britton Lewis MD 02/15/2019 02:30 P
[2019-02-15] MEDS ORDERED: NS 1,000 ML IV SCH (13:00)
[2019-02-15] MEDS ORDERED: CALC0.009 TOP (15:18)
[2019-02-15 15:30] VITALS: BP 137/83
[2019-02-15] MEDS: NS 1,000 ML IV SCH ×2 (16:00→20:21)
[2019-02-15] MEDS ORDERED: CitaloPRAM (CeleXA) 20 MG TAB PO ONE (17:00)
[2019-02-15 17:30] VITALS: BP 137/83
--- NOTE | 2019-02-15 17:43 | CR.PDOC ---
General Date of Consultation: Feb 15, 2019 Consultation REASON FOR CONSULTATION/CHIEF COMPLAINT: Left flank pain. HISTORY OF PRESENT ILLNESS: 49-year-old male with a six-day history of left flank pain and left lower quadrant abdominal pain. Patient is complaining of nausea and vomiting. He reports chills at home but has not taken his tempe rature. Patient denies a prior history of stone disease. Patient denies dysuria. He denies hematuria. A CT scan was reviewed and patient has a 6 mm left midureteral calculus. Patient denies high intake of oxalates. He denies a history of gout. ALLERGIES: Please see below. HOME MEDICATIONS: Please see below. PAST MEDICAL HISTORY: 1. Chronic neck pain. PAST SURGICAL HISTORY: 1. Cervical laminectomy FAMILY HISTORY: Noncontributory SOCIAL HISTORY: Smoking history one half pack per day for 31 years REVIEW OF SYSTEMS: CONSTITUTIONAL: Reporting chills. HEENT: Denies headache. CARDIOVASCULAR: Denies chest pain. RESPIRATORY: Denies shortness of breath. GENITOURINARY: See HPI. MUSCULOSKELETAL: Reports chronic neck pain. GASTROINTESTINAL: Reports nausea and vomiting. SKIN: History of chronic rash. NEUROLOGICAL: Denies neurological symptoms. HEMATOLOGIC/LYMPHATIC: Denies bleeding disorders. PHYSICAL EXAMINATION: VITAL SIGNS: Please see below. GENERAL APPEARANCE: Patient is somewhat lethargic. HEENT: Unremarkable. RESPIRATORY: No respiratory distress. CARDIOVASCULAR: No peripheral edema. ABDOMEN: Soft, left lower quadrant tenderness, left CVA tenderness. EXTREMITIES: Full range of motion. NEUROLOGICAL: No focal deficits. LABORATORY DATA: Please see below. ASSESSMENT/PLAN: 1. Left 6 mm midureteral calculus with colic, nausea, and vomiting. Patient is afebrile with no evidence of sepsis. Treatment options were discussed and patient will be treated with medical expulsive therapy. Patient will have IV hydration along with Flomax and analgesics. Strain urine for stones. If patient has no improvement after 24 hours patient may require cystoscopy, ureteroscopy with laser lithotripsy and stent placement. Vital Signs/I&O Vital Signs Date Time Temp Pulse Resp B/P (MAP) Pulse Ox O2 Delivery O2 Flow Rate FiO2 02/15/19 15:31 98.9 69 16 98 02/15/19 15:30 136/83 (100) 02/15/19 12:30 Room Air Laboratory Data Labs 24H Laboratory Tests 2 02/15/19 08:50: Immature Granulocyte % (Auto) 0.5, White Blood Count 23.4H, Red Blood Count 5.22, Hemoglobin 16.6, Hematocrit 50.1, Mean Corpuscular Volume 96.0, Mean Corpuscular Hemoglobin 31.8, Mean Corpuscular Hemoglobin Concent 33.1, Red Cell Distribution Width 14.1, Platelet Count 264, Neutrophils (%) (Auto) 89.2H, Lymphocytes (%) (Auto) 5.5L, Monocytes (%) (Auto) 4.5, Eosinophils (%) (Auto) 0.0, Basophils (%) (Auto) 0.3, Neutrophils # (Auto) 20.8H, Lymphocytes # (Auto) 1.3L, Monocytes # (Auto) 1.1H, Eosinophils # (Auto) 0.0, Basophils # (Auto) 0.1, Nucleated Red Blood Cells % (auto) 0.0, Anion Gap 11, Glomerular Filtration Rate 45.6L, Calcium Level 9.6, Aspartate Amino Transf (AST/SGOT) 15, Alanine Amino transferase (ALT/SGPT) 25, Alkaline Phosphatase 98, Total Bilirubin 0.6, Direct Bilirubin 0.1, Total Creatine Kinase 95, Creatine Kinase MB < 1.0, Creatine Kinase MB Relative Index 1.05, Troponin I < 0.02, Total Protein 7.6, Albumin 4.1, Albumin/Globulin Ratio 1.17, Amylase Level 32, Lipase 69L 02/15/19 09:09: Influenza Type A (RT-PCR) NEGATIVE, Influenza Type B (RT-PCR) NEGATIVE, Respiratory Syncytial Virus (RT-PCR NEGATIVE 02/15/19 13:02: Urine Color YELLOW, Urine Appearance HAZY, Urine pH 5.0, Urine Specific [place] 1.025, Urine Protein NEGATIVE, Urine Glucose (UA) 1+H, Urine Ketones TRACEH, Urine Blood 1+H, Urine Nitrite NEGATIVE, Urine Bilirubin NEGATIVE, Urine Urobilinogen 0.2, Urine Leukocyte Esterase NEGATIVE, Urine WBC (Auto) 2, Urine RBC (Auto) 7H, Urine Hyaline Casts (Auto) 0, Urine Bacteria (Auto) 1+H, Urine Squamous Epithelial Cells 1, Urine Mucus (Auto) SMALL, Urine Sperm (Auto) CBC/BMP Laboratory Tests 02/15/19 08:50 Red Blood Count 5.22, Mean Corpuscular Volume 96.0, Mean Corpuscular Hemoglobin 31.8, Mean Corpuscular Hemoglobin Concent 33.1, Red Cell Distribution Width 14.1, Neutrophils (%) (Auto) 89.2 H, Lymphocytes (%) (Auto) 5.5 L, Monocytes (%) (Auto) 4.5, Eosinophils (%) (Auto) 0.0, Basophils (%) (Auto) 0.3, Neutrophils # (Auto) 20.8 H, Lymphocytes # (Auto) 1.3 L, Monocytes # (Auto) 1.1 H, Eosinophils # (Auto) 0.0, Basophils # (Auto) 0.1 Allergies Coded Allergies: No Known Allergies (Verified , 01/28/18) Home Medications Scheduled Betamethasone Dipropionate (Betamethasone Dipropionate) 15 Gm Cream..g., 1 APLCT TOP DAILY, (Reported) APPLY TO ABDOMEN, ARMS, KNEES Calcipotriene (Calcipotriene) 60 Gm Cream..g., 1 APLCT TOP BID, (Reported) APPLY TO [place]QUE AREAS Citalopram Hydrobromide (Citalopram HBr) 40 Mg Tablet, 40 MG PO DAILY, (Reported) Gabapentin (Gabapentin) 600 Mg Tablet, 600 MG PO TID, (Reported) Trazodone HCl (Trazodone HCl) 100 Mg Tablet, 100 MG PO QHS, (Reported) Scheduled PRN Diphenhydramine HCl (Banophen) 25 Mg Capsule, 25 MG PO DAILY PRN for ITCHING, (Reported) Tizanidine HCl (Tizanidine HCl) 2 Mg Tablet, 1 MG PO Q6H PRN for MUSCLE SPASMS, (Reported) Tramadol HCl (Tramadol HCl) 50 Mg Tab, 100 MG PO Q8H PRN for PAIN, (Reported) Felix Adams MD Feb 15, 2019 17:43
[2019-02-15] MEDS: CIPROFLOXACIN 400 MG in APPROPRIATE DILUENT 1 EA IV SCH (18:03)
[2019-02-15] MEDS: GABAPENTIN 300 MG CAP PO SCH ×2 (18:04→20:21)
[2019-02-15] MEDS: TAMSULOSIN 0.4 MG CAP PO SCH (18:04)
[2019-02-15 22:00] VITALS: BP 138/89
--- NOTE | 2019-02-15 22:12 | HPE ---
DATE OF ADMISSION: 02/15/2019 PRIMARY CARE PROVIDER: Dr. Polo Orantes D.O. ([facility] residency clinic) ATTENDING PHYSICIAN: Hospitalist group. CHIEF COMPLAINT: Left hydronephrosis with acute kidney injury, suspected urinary infection. HISTORY: Carl Singh is a 49-year-old who has not had previous renal stones. He presented with left abdominal pain. CT showed an obstructing stone on the left with hydronephrosis. He has a leukocytosis. Describes fevers and chills (no vital signs taken for the last 7 hours). He is being admitted for intravenous (IV) antibiotics, hydration, and urology consult. MEDICAL HISTORY: Significant for: 1. Psoriasis. 2. Arthritis. 3. Left anterior cruciate ligament (ACL) repair. 4. Tobacco abuse. 5. He has had various chronic pain problems that he used to see a pain clinic for. 6. 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 Underwent C2-6 posterior instrumented fusion. Postoperative course was unremarkable. 7. He looks to have a history of depression, or at least he is on various antidepressant medications. I have reviewed his primary care provider note, and in their electronic record, there is no psychiatric diagnosis listed, but he is on a number of psychiatric medications. CURRENT MEDICATIONS: - tizanidine 2 mg every 6 hours as needed - gabapentin 600 mg three times a day - trazodone 50 mg daily - calcipotriene 0.005% cream twice daily - clobetasol 0.05% shampoo daily - Wellbutrin XL 150 mg twice a day - tramadol 50 mg every 8 hours as needed ALLERGIES: Unknown. SURGICAL HISTORY: 1. Skin graft for reyna, face and neck, in 1996. 2. Perforated right tympanic membrane (TM), age 4. 3. ACL surgery in 1997. 4. Cervical fusion September 2016 and again December 2018. 5. Right ulnar nerve transposition December 2016. FAMILY HISTORY: Unknown. He is adopted. SOCIAL HISTORY: Smokes. Moderate alcohol use. He is disabled. REVIEW OF SYSTEMS: He says he has felt feverish and having chills. He denies dysuria. He is having lower abdominal pain. No chest pain, shortness of breath, orthopnea, or paroxysmal nocturnal dyspnea (PND). PHYSICAL EXAMINATION: VITAL SIGNS: Last done 7-1/2 hours ago. At that time they were stable. Pupils equal, round, reactive to light. TMs and oropharynx benign. NECK: No masses. LUNGS: Clear. HEART: Regular without murmur. ABDOMEN: Soft. Tender left lower quadrant. Tender left flank. He has bowel sounds. EXTREMITIES: No clubbing, cyanosis, or edema. SKIN: Shows psoriatic plaques. GENERAL APPEARANCE: Moderately ill. He looks feverish. Clinical impression is possible sepsis. LABORATORY DATA: White count 23,000, hemoglobin 16, platelets 246. Sodium 143, potassium 4.6, BUN 19, creatinine 1.7 (baseline creatinine 0.9), blood sugar 187. They did a flu screen as well as an respiratory syncytial virus (RSV) screen. He does not have either. Urinalysis shows 1+ bacteria. Only [address] of the abdomen and pelvis showed a left 6 mm proximal stone with a hydronephrosis. IMPRESSION: 1. Left renal stone with hydronephrosis, suspected sepsis urinary source. PLAN: I called the emergency room (ER). I have asked them to perhaps update their vital signs. I will start him on some saline, Flomax, empiric antibiotics with IV Cipro. the urologist that they consult with, case has been discussed. Patient will be admitted to the hospitalist service and medical/surgical bed. 2. Various psychiatric diagnoses. Continue his psychiatric medications. 3. Acute kidney injury. Avoid nonsteroidal anti-inflammatory drugs (NSAIDs). Dose medications based on renal function He should respond to hydration and relief of the ureteral obstruction. 4. Recent spinal fusion. He is 2 months out from that. Unlikely that he would have a nosocomial urinary infection.
[2019-02-15] MEDS: MORPHINE 4 MG/ML 1ML VIAL/SYRINGE (J2270) IV PRN (22:24)
[2019-02-16] VITALS (10 sets, daily range): BP systolic 117–141; BP diastolic 64–77
[2019-02-16] MEDS: MORPHINE 4 MG/ML 1ML VIAL/SYRINGE (J2270) IV PRN ×3 (04:35→21:54)
[2019-02-16] MEDS: NS 1,000 ML IV SCH ×4 (04:35→14:33)
[2019-02-16] MEDS: CIPROFLOXACIN 400 MG in APPROPRIATE DILUENT 1 EA IV SCH ×2 (04:36→16:19)
--- NOTE | 2019-02-16 07:18 | ECGEPIP ---
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
[2019-02-16 07:25] LABS: BASO % 0.2 % (0.0-1.0); EOS % 0.2 % (0.0-3.0); LYMPH # 1.9 10^3/uL (1.5-4.5); LYMPH % 10.3 % (24.0-44.0); MEAN CORPUSCULAR HEMOGLOBIN 32.6 pg (27.0-33.0); MEAN CORPUSCULAR HGB CONC 33.1 g/dl (32.0-36.5); MEAN CORPUSCULAR VOLUME 98.6 fl (80.0-96.0); MONO # 1.9 10^3/uL (0.0-0.8); MONO % 10.5 % (0.0-5.0); NEUTROPHILS # 14.3 10^3/uL (1.8-7.7); NEUTROPHILS % 78.3 % (36.0-66.0); PLATELET COUNT, AUTOMATED 214 10^3/uL (150-450); RED BLOOD COUNT 4.26 10^6/uL (4.30-6.10); WHITE BLOOD COUNT 18.2 10^3/uL (4.0-10.0)
[2019-02-16 07:28] LABS: HEMOGLOBIN 13.9 g/dl (13.5-17.5)
[2019-02-16 07:45] LABS: CALCIUM LEVEL 7.8 MG/DL (8.5-10.1); CREATININE FOR GFR 1.46 MG/DL (0.70-1.30); GLOMERULAR FILTRATION RATE 54.4 (>56); POTASSIUM SERUM 4.3 MEQ/L (3.5-5.1)
[2019-02-16] MEDS: ENOXAPARIN 40 MG/0.4 ML SYRINGE (J1650) SC SCH (09:00)
[2019-02-16] MEDS: GABAPENTIN 300 MG CAP PO SCH ×3 (09:01→21:50)
[2019-02-16] MEDS: TAMSULOSIN 0.4 MG CAP PO SCH (09:01)
--- NOTE | 2019-02-16 09:14 | IPNPDOC ---
Date Seen The patient was seen on 02/16/19. Progress Note SUBJECTIVE: Patient complaining of left flank pain. Temp this morning 100. OBJECTIVE PHYSICAL EXAMINATION: VITAL SIGNS: Please see below. Patient more alert this morning in mild distress abdomen firm, left lower quadrant tenderness, left CVA-tenderness LABORATORY DATA, IMAGING STUDIES, MICROBIOLOGY: Please see below. ASSESSMENT AND PLAN: Patient has a left mid ureteral stone with low grade temperature and poorly controlled pain. Patient will be scheduled for a cystoscopy, left retrograde pyelogram, left stent. Patient will need to be scheduled for a ureteroscopy in 1-2 weeks as an outpatient. Informed consent obtained. Material risks and complications were discussed. PROBLEMS: 1. Left ureteral calculus with fever and colic VS, I&O, 24H, Fishbone Vital Signs/I&O Vital Signs Date Time Temp Pulse Resp B/P (MAP) Pulse Ox O2 Delivery O2 Flow Rate FiO2 02/16/19 09:04 16 02/16/19 06:00 100.0 75 130/68 (88) 90 02/15/19 12:30 Room Air I&O- Last 24 Hours up to 6 AM 02/16/19 06:00 Intake Total 1000 ml Output Total 600 ml Balance 400 ml Laboratory Data 24H LABS Laboratory Tests 2 02/15/19 13:02: Urine Color YELLOW, Urine Appearance HAZY, Urine pH 5.0, Urine Specific [place] 1.025, Urine Protein NEGATIVE, Urine Glucose (UA) 1+H, Urine Ketones TRACEH, Urine Blood 1+H, Urine Nitrite NEGATIVE, Urine Bilirubin NEGATIVE, Urine Urobilinogen 0.2, Urine Leukocyte Esterase NEGATIVE, Urine WBC (Auto) 2, Urine RBC (Auto) 7H, Urine Hyaline Casts (Auto) 0, Urine Bacteria (Auto) 1+H, Urine Squamous Epithelial Cells 1, Urine Mucus (Auto) SMALL, Urine Sperm (Auto) 02/16/19 06:39: Immature Granulocyte % (Auto) 0.5, White Blood Count 18.2H, Red Blood Count 4.26L, Hemoglobin 13.9#, Hematocrit 42.0, Mean Corpuscular Volume 98.6H, Mean Corpuscular Hemoglobin 32.6, Mean Corpuscular Hemoglobin Concent 33.1, Red Cell Distribution Width 14.5, Platelet Count 214, Neutrophils (%) (Auto) 78.3H, Lymphocytes (%) (Auto) 10.3L, Monocytes (%) (Auto) 10.5H, Eosinophils (%) (Auto) 0.2, Basophils (%) (Auto) 0.2, Neutrophils # (Auto) 14.3H, Lymphocytes # (Auto) 1.9, Monocytes # (Auto) 1.9H, Eosinophils # (Auto) 0.0, Basophils # (Auto) 0.0, Nucleated Red Blood Cells % (auto) 0.0, Anion Gap 6L, Glomerular Filtration Rate 54.4L, Blood Urea Nitrogen 20H, Creatinine 1.46H, Sodium Level 144, Potassium Level 4.3, Chloride Level 111H, Carbon Dioxide Level 27, Calcium Level 7.8#L CBC/BMP Laboratory Tests 02/16/19 06:39 Red Blood Count 4.26 L, Mean Corpuscular Volume 98.6 H, Mean Corpuscular Hemoglobin 32.6, Mean Corpuscular Hemoglobin Concent 33.1, Red Cell Distribution Width 14.5, Neutrophils (%) (Auto) 78.3 H, Lymphocytes (%) (Auto) 10.3 L, Monocytes (%) (Auto) 10.5 H, Eosinophils (%) (Auto) 0.2, Basophils (%) (Auto) 0.2, Neutrophils # (Auto) 14.3 H, Lymphocytes # (Auto) 1.9, Monocytes # (Auto) 1.9 H, Eosinophils # (Auto) 0.0, Basophils # (Auto) 0.0, Calcium Level 7.8 #L Felix Adams MD Feb 16, 2019 09:14
[2019-02-16] MEDS ORDERED: CONRAY-60 60% 50ML VIAL (Q9961) As Ordered ONE (09:43)
[2019-02-16] MEDS ORDERED: LIDOCAINE 2% 5ML JELLY UROJET As Ordered ONE (09:43)
[2019-02-16] MEDS ORDERED: MIDAZOLAM INJ 2 MG/2 ML VIAL (J2250) As Ordered ONE (09:52)
[2019-02-16] MEDS ORDERED: LIDOCAINE 2% INJ 100 MG/5 ML SDV (FOR ANES.) As Ordered ONE (09:52)
[2019-02-16] MEDS ORDERED: fentaNYL 100 MCG/2 ML INJECTION (J3010) As Ordered ONE (09:52)
[2019-02-16] MEDS ORDERED: PROPOFOL 200 MG/20 ML VIAL As Ordered ONE (09:52)
--- NOTE | 2019-02-16 10:42 | ROOPDOC ---
[facility] Report Of Operation Report of Operation DATE OF PROCEDURE: 02/16/19 PREPROCEDURE DIAGNOSES: Left ureteral calculus. POSTPROCEDURE DIAGNOSES: Same. PROCEDURE: Cystoscopy, left retrograde pyelogram, left double-J stent. SURGEON: Felix Adams MD FLIGHT COMMUNICATIONS OFFICER: [place], ANESTHESIA: IV sedation (MAC), local 2% Xylocaine gel. ESTIMATED BLOOD LOSS: Approximately 0 mL. COMPLICATIONS: None. REMARKS: Drains: 6 Dutch multilength double-J stent. PROCEDURE NOTE: Patient was brought to the operative following the demonstration of IV sedation was placed in the dorsal lithotomy position and prepped and draped in the usual sterile fashion. 2% Xylocaine gel was instilled into urethra. Once good anesthesia was obtained a 22 Dutch cystoscope was inserted under direct vision. The proximal urethra had a stricture which was dilated with the cystoscope. The prostate was 3 cm in length. Examination of the bladder revealed no tumors or stones. A 0.038 guidewire was inserted into the left ureteral orifice. An open-ended catheter was inserted over the wire and the wire was removed. Retrograde pyelogram was performed. Mild hydronephrosis was present. The stone was not well visualized. The wire was replaced and advanced to the renal pelvis. The open-ended catheter was removed. A 6 Dutch multilength double-J stent was then inserted under direct vision using fluoroscopy guidance. Once good position was confirmed by fluoroscopy the wire was removed leaving this stent in place. The bladder was emptied and the cystoscope was removed. Patient tolerated the procedure well and returned to recovery room in satisfactory condition. Felix Adams MD Feb 16, 2019 10:42
[2019-02-16] MEDS ORDERED: METOCLOPRAMIDE INJ 10MG/2ML VIAL (J2765) IV PRN (11:30)
[2019-02-16] MEDS ORDERED: fentaNYL 100 MCG/2 ML INJECTION (J3010) IV PRN (11:30)
[2019-02-16] MEDS ORDERED: NORCO, ANEXSIA 5/325MG TABLET (HYDROcodone/ACETAMINOPHEN) PO PRN (11:30)
[2019-02-16] MEDS ORDERED: traZODone 100 MG TAB PO PRN (12:00)
--- NOTE | 2019-02-16 13:05 | IPN ---
DATE: 02/16/2019 SUBJECTIVE: The patient continues to complain of pain in his left groin radiating down from the flank. He tells me that he has not felt febrile and he denies chills or shortness of breath, nausea, vomiting, or diarrhea. He denies any changes in his urinary symptoms. He tells me that he is not passed a stone. OBJECTIVE: VITAL SIGNS: Temperature 97, maximum temperature 100, pulse 72, respirations 16, blood pressure 119/73, oxygen sat 94% on 2 liters nasal cannula. GENERAL: He is a middle aged male laying flat in bed in no acute distress. He is awake, alert and oriented times three. HEENT: Cranial nerves II through XII are grossly intact. No elevation in CVP. CARDIOVASCULAR: S1, S2 regular. Non tachycardiac. RESPIRATORY: Clear. ABDOMEN: Benign. No CVA tenderness. There is some tenderness to palpation in the left groin inguinal region. EXTREMITIES: No clubbing cyanosis or edema. LABORATORY STUDIES: WBC: 18.2 down from 23.4m hemoglobin 13.9, platelet count 214. Chemistry panel sodium 144, potassium 4.3, chloride 111, bicarbonate 27, BUN 20, creatinine 1.4 down from 1.6. A UA did reveal 1+ blood, 1+ glucose, trace [place], 7 red blood cells and 1+ bacteria. IMAGING: The CT scan of the abdomen and pelvis yesterday which revealed a moderate sized left sided hydronephrosis due to a 6 mm proximal ureteral calculus on the left side. Located at the level of the lower pole of the left kidney. Left lower lobe and right middle plate like atelectasis noted in the lungs. ASSESSMENT AND PLAN: This is a 49-year-old man with left hydronephrosis secondary to obstructing left 6 mm stone. PROBLEMS: 1. Obstructive uropathy. Urology's help greatly appreciated. I explained to him that he has not passed a stone and not improved with support and measures he would benefit from a cystoscopy and possible double-J stent placement on the left. We will defer to urology. For the time being he remains on empiric antibiotics, Flomax and pain control. He is doing fairly well and his renal function does appear to be improving with the IV hydration. 2. Mood disorder. I think he would benefit from having his citalopram 40 mg and trazodone resumed. We will do so at this time. 3. DVT prophylaxis. Lovenox.
[2019-02-16] MEDS: CitaloPRAM (CeleXA) 20 MG TAB PO SCH (14:32)
[2019-02-17 02:00] VITALS: BP 155/78
[2019-02-17] MEDS: MORPHINE 4 MG/ML 1ML VIAL/SYRINGE (J2270) IV PRN ×2 (02:47→06:52)
[2019-02-17] MEDS: CIPROFLOXACIN 400 MG in APPROPRIATE DILUENT 1 EA IV SCH (05:05)
[2019-02-17 06:00] VITALS: BP 139/89
[2019-02-17 06:27] LABS: BASO # 0.1 10^3/uL (0.0-0.2); BASO % 0.8 % (0.0-1.0); EOS # 0.1 10^3/uL (0.0-0.50); EOS % 1.2 % (0.0-3.0); HEMATOCRIT 39.6 % (42.0-52.0); HEMOGLOBIN 13.1 g/dl (13.5-17.5); LYMPH # 3.2 10^3/uL (1.5-4.5); LYMPH % 27.9 % (24.0-44.0); MEAN CORPUSCULAR HEMOGLOBIN 32.3 pg (27.0-33.0); MEAN CORPUSCULAR HGB CONC 33.1 g/dl (32.0-36.5); MEAN CORPUSCULAR VOLUME 97.5 fl (80.0-96.0); MONO # 1.3 10^3/uL (0.0-0.8); MONO % 11.1 % (0.0-5.0); NEUTROPHILS # 6.8 10^3/uL (1.8-7.7); NEUTROPHILS % 58.6 % (36.0-66.0); PLATELET COUNT, AUTOMATED 193 10^3/uL (150-450); RED BLOOD COUNT 4.06 10^6/uL (4.30-6.10); WHITE BLOOD COUNT 11.6 10^3/uL (4.0-10.0)
[2019-02-17 06:39] LABS: BLOOD UREA NITROGEN 14 MG/DL (7-18); CARBON DIOXIDE LEVEL 28 MEQ/L (21-32); CHLORIDE LEVEL 108 MEQ/L (98-107); CREATININE FOR GFR 0.83 MG/DL (0.70-1.30); GLOMERULAR FILTRATION RATE > 60.0 (>56); GLUCOSE, FASTING 103 MG/DL (70-100); POTASSIUM SERUM 3.6 MEQ/L (3.5-5.1); SODIUM LEVEL 140 MEQ/L (136-145)
--- NOTE | 2019-02-17 07:42 | IPNPDOC ---
Date Seen The patient was seen on 02/17/19. Progress Note SUBJECTIVE: Patient denies colic. Mild discomfort when voiding OBJECTIVE PHYSICAL EXAMINATION: VITAL SIGNS: Please see below. Afebile VSS Abdomen sof non tender Urine Culture negative KUB pending LABORATORY DATA, IMAGING STUDIES, MICROBIOLOGY: Please see below. E ASSESSMENT AND PLAN: Patient is stable following stent placement. Patient scheduled for KUB today. Urologically cleared for discharge after KUB. Patient to follow up in office this week to schedule outpatient ureteroscopy. PROBLEMS: 1. Left ureteral calculus DISPOSITION: Home VS, I&O, 24H, [facility] Vital Signs/I&O Vital Signs Date Time Temp Pulse Resp B/P (MAP) Pulse Ox O2 Delivery O2 Flow Rate FiO2 02/17/19 06:52 16 02/17/19 06:00 99.1 68 139/89 (106) 97 02/17/19 02:57 2.0 02/15/19 12:30 Room Air I&O- Last 24 Hours up to 6 AM 02/17/19 06:00 Intake Total 2220 ml Output Total 1575 ml Balance 645 ml Laboratory Data 24H LABS Laboratory Tests 2 02/17/19 06:06: Immature Granulocyte % (Auto) 0.4, White Blood Count 11.6H, Red Blood Count 4.06L, Hemoglobin 13.1L, Hematocrit 39.6L, Mean Corpuscular Volume 97.5H, Mean Corpuscular Hemoglobin 32.3, Mean Corpuscular Hemoglobin Concent 33.1, Red Cell Distribution Width 14.3, Platelet Count 193, Neutrophils (%) (Auto) 58.6, Lymphocytes (%) (Auto) 27.9, Monocytes (%) (Auto) 11.1H, Eosinophils (%) (Auto) 1.2, Basophils (%) (Auto) 0.8, Neutrophils # (Auto) 6.8, Lymphocytes # (Auto) 3.2, Monocytes # (Auto) 1.3H, Eosinophils # (Auto) 0.1, Basophils # (Auto) 0.1, Nucleated Red Blood Cells % (auto) 0.0, Anion Gap 4L, Glomerular Filtration Rate > 60.0, Blood Urea Nitrogen 14, Creatinine 0.83, Sodium Level 140, Potassium Level 3.6, Chloride Level 108H, Carbon Dioxide Level 28, Calcium Level 8.0L CBC/BMP Laboratory Tests 02/17/19 06:06 Red Blood Count 4.06 L, Mean Corpuscular Volume 97.5 H, Mean Corpuscular Hemoglobin 32.3, Mean Corpuscular Hemoglobin Concent 33.1, Red Cell Distribution Width 14.3, Neutrophils (%) (Auto) 58.6, Lymphocytes (%) (Auto) 27.9, Monocytes (%) (Auto) 11.1 H, Eosinophils (%) (Auto) 1.2, Basophils (%) (Auto) 0.8, Neutrophils # (Auto) 6.8, Lymphocytes # (Auto) 3.2, Monocytes # (Auto) 1.3 H, Eosinophils # (Auto) 0.1, Basophils # (Auto) 0.1, Calcium Level 8.0 L Felix Adams MD Feb 17, 2019 07:42
[2019-02-17] MEDS: GABAPENTIN 300 MG CAP PO SCH (08:35)
[2019-02-17] MEDS: TAMSULOSIN 0.4 MG CAP PO SCH (08:35)
[2019-02-17] MEDS: CitaloPRAM (CeleXA) 20 MG TAB PO SCH (08:35)
[2019-02-17] MEDS: ENOXAPARIN 40 MG/0.4 ML SYRINGE (J1650) SC SCH (08:36)
--- NOTE | 2019-02-17 09:40 | REP ---
Supine abdomen two views for ureteral calculus location: Comparison is the abdomen and pelvis CT dated 02/15/2019. On the comparison CT there was a left ureteral calculus at the approximate level of the left renal lower pole. On the current study to supine AP views of the abdomen are performed. There has been interval placement of a left ureteral stent with the proximal and distal pigtails in satisfactory locations. No calcifications are note along the course of the stent or in the left renal pelvis. There is a 5 ml calcification projected over the bladder on the right. This is nonspecific and could represent a phlebolith or could represent a bladder calculus. There was no bladder calculus on the comparison CT. Electronically Signed by Florentin Estrada MD 02/17/2019 09:28 A
--- NOTE | 2019-02-17 09:56 | REP ---
RETROGRADE URETEROGRAM: Four views. HISTORY: Cystoscopy. Left stent placement. 1 minute 7 seconds of fluoroscopy time is reported. FINDINGS: A sequence of four last image hold fluoroscopically obtained spot radiographs of the abdomen document ureteral cannulation, contrast injection, and double pigtail ureteral stent placement. No laterality markers are visible. Electronically Signed by Britton Lewis MD 02/17/2019 10:26 A
[2019-02-17 10:00] VITALS: BP 132/81
--- NOTE | 2019-02-17 14:03 | DS.PDOC ---
Discharge Summary General Date of Admission Feb 15, 2019 at 15:27 Date of Discharge 02/17/19 Primary Care Physician: GONZALO REYNOLDS DO Attending Physician: GERSON ONTIVEROS MD Discharge Summary PROCEDURES PERFORMED DURING STAY: [facility] Report Of Operation Report of Operation DATE OF PROCEDURE: 02/16/19 PREPROCEDURE DIAGNOSES: Left ureteral calculus. POSTPROCEDURE DIAGNOSES: Same. PROCEDURE: Cystoscopy, left retrograde pyelogram, left double-J stent. SURGEON: Felix Adams MD MEMBER OF TECHNICAL STAFF: [place], ANESTHESIA: IV sedation (MAC), local 2% Xylocaine gel. ESTIMATED BLOOD LOSS: Approximately 0 mL. COMPLICATIONS: None. REMARKS: Drains: 6 Croatian multilength double-J stent. ADMITTING DIAGNOSES: 1. L. renal stone with hydronephrosis. 2. Mood disorder 3. WALT DISCHARGE DIAGNOSES: 1. L. renal stone with hydronephrosis. 2. Mood disorder 3. WALT COMPLICATIONS/CHIEF COMPLAINT: WALT,Left Ureteral Stone. HISTORY OF PRESENT ILLNESS: "Carl Singh is a 49-year-old who has not had previous renal stones. He presented with left abdominal pain. CT showed an obstructing stone on the left with hydronephrosis. He has a leukocytosis. Describes fevers and chills (no vital signs taken for the last 7 hours). He is being admitted for intravenous (IV) antibiotics, hydration, and urology consult." HOSPITAL COURSE: Patient is a 49-year-old male presented to ER with complaints of left abdominal pain associated with fevers and chills found to have an L. obstructive stone with hydronephrosis as well as WALT. Patient was treated with IV fluids and underwent a cystoscopy with urology with placement of double-J stent. Patient has been stable postop and currently denies any complaints wishing to go home. To discharge patient home to follow up PCP as well as urology for further evaluation and intervention. DISCHARGE MEDICATIONS: Please see below. ALLERGIES: Please see below. PHYSICAL EXAMINATION ON DISCHARGE: VITAL SIGNS: Please see below. General: No acute distress, Alert Eyes: Normal sclera, EOMI, MIKEL HENT: Atraumatic, neck supple, moist mucous membranes Cardiovascular: Normal rate, normal rhythm. No murmurs appreciated. Pulmonary: Clear to auscultation b/l, no wheezing GI: Soft, nontender, nondistended Skin: Warm and dry Neuro: CN grossly intact. No focal deficits. Strengths equal b/l. Psych: oriented x 3 LABORATORY DATA: Please see below. IMAGING: CT abdomen/pelvis- Impression: Moderate left-sided hydronephrosis due to a 6 mm proximal ureteral calculus on the left side located at the level of the lower pole of the left kidney. Left lower lobe and right middle lobe plate-like atelectasis noted in the lungs. Retrograde pyelogram- FINDINGS: A sequence of four last image hold fluoroscopically obtained spot radiographs of the abdomen document ureteral cannulation, contrast injection, and double pigtail ureteral stent placement. No laterality markers are visible. Abdominal XR/KUB- There is a 5 ml calcification projected over the bladder on the right. This is nonspecific and could represent a phlebolith or could represent a bladder calculus. There was no bladder calculus on the comparison CT. ACTIVITY: [As tolerated]. DIET: Regular diet DISCHARGE PLAN: f/u with PMD and Urology DISPOSITION: . DISCHARGE INSTRUCTIONS: 1. f/u urology and PMD ITEMS TO FOLLOWUP ON ON OUTPATIENT: 1. none DISCHARGE CONDITION: [Stable]. TIME SPENT ON DISCHARGE: Greater than 30 minutes. Vital Signs/I&Os Vital Signs Date Time Temp Pulse Resp B/P (MAP) Pulse Ox O2 Delivery O2 Flow Rate FiO2 02/17/19 10:00 97.9 68 17 132/81 (98) 94 02/17/19 02:57 2.0 02/15/19 12:30 Room Air I&O- Last 24 Hours up to 6 AM 02/17/19 06:00 Intake Total 2220 ml Output Total 1575 ml Balance 645 ml Laboratory Data Labs 24H Laboratory Tests 2 02/17/19 06:06: Immature Granulocyte % (Auto) 0.4, White Blood Count 11.6H, Red Blood Count 4.06L, Hemoglobin 13.1L, Hematocrit 39.6L, Mean Corpuscular Volume 97.5H, Mean Corpuscular Hemoglobin 32.3, Mean Corpuscular Hemoglobin Concent 33.1, Red Cell Distribution Width 14.3, Platelet Count 193, Neutrophils (%) (Auto) 58.6, Lymphocytes (%) (Auto) 27.9, Monocytes (%) (Auto) 11.1H, Eosinophils (%) (Auto) 1.2, Basophils (%) (Auto) 0.8, Neutrophils # (Auto) 6.8, Lymphocytes # (Auto) 3.2, Monocytes # (Auto) 1.3H, Eosinophils # (Auto) 0.1, Basophils # (Auto) 0.1, Nucleated Red Blood Cells % (auto) 0.0, Anion Gap 4L, Glomerular Filtration Rate > 60.0, Blood Urea Nitrogen 14, Creatinine 0.83, Sodium Level 140, Potassium Level 3.6, Chloride Level 108H, Carbon Dioxide Level 28, Calcium Level 8.0L CBC/BMP Laboratory Tests 02/17/19 06:06 Red Blood Count 4.06 L, Mean Corpuscular Volume 97.5 H, Mean Corpuscular Hemoglobin 32.3, Mean Corpuscular Hemoglobin Concent 33.1, Red Cell Distribution Width 14.3, Neutrophils (%) (Auto) 58.6, Lymphocytes (%) (Auto) 27.9, Monocytes (%) (Auto) 11.1 H, Eosinophils (%) (Auto) 1.2, Basophils (%) (Auto) 0.8, N eutrophils # (Auto) 6.8, Lymphocytes # (Auto) 3.2, Monocytes # (Auto) 1.3 H, Eosinophils # (Auto) 0.1, Basophils # (Auto) 0.1, Calcium Level 8.0 L Discharge Medications Scheduled Betamethasone Dipropionate (Betamethasone Dipropionate) 15 Gm Cream..g., 1 APLCT TOP DAILY, (Reported) APPLY TO ABDOMEN, ARMS, KNEES Calcipotriene (Calcipotriene) 60 Gm Cream..g., 1 APLCT TOP BID, (Reported) APPLY TO PLAQUE AREAS Citalopram Hydrobromide (Citalopram HBr) 40 Mg Tablet, 40 MG PO DAILY, (Reported) Gabapentin (Gabapentin) 600 Mg Tablet, 600 MG PO TID, (Reported) Trazodone HCl (Trazodone HCl) 100 Mg Tablet, 100 MG PO QHS, (Reported) Scheduled PRN Diphenhydramine HCl (Banophen) 25 Mg Capsule, 25 MG PO DAILY PRN for ITCHING, (Reported) Tizanidine HCl (Tizanidine HCl) 2 Mg Tablet, 1 MG PO Q6H PRN for MUSCLE SPASMS, (Reported) Tramadol HCl (Tramadol HCl) 50 Mg Tab, 100 MG PO Q8H PRN for PAIN, (Reported) Allergies Coded Allergies: No Known Allergies (Verified , 01/28/18) GERSON ONTIVEROS MD Feb 17, 2019 14:03
== END 2019-02-17 15:05 | disposition home or self-care (01) | DRG 465 ==
LOC: M ED 08:29 → M ED INP 15:27 → M MS5PR 17:25
PROVIDERS: ADMIT Family Medicine; ATTEND Student in an Organized Health Care Education/Training Program
PROC: 0T778DZ Dilation of Left Ureter with Intraluminal Device, Via Natural or Artificial Opening Endoscopic (ICD-10-PCS; principal; 2019-02-16 09:28)
DX: N13.2 Hydronephrosis with renal and ureteral calculous obstruction (principal); N17.9 Acute kidney failure, unspecified; F39 Unspecified mood [affective] disorder; Z79.899 Other long term (current) drug therapy; M19.90 Unspecified osteoarthritis, unspecified site; L40.8 Other psoriasis; F17.200 Nicotine dependence, unspecified, uncomplicated; G89.29 Other chronic pain; M54.2 Cervicalgia

== ENCOUNTER → 2019-02-25 | Outpatient (CLI) | payer OTHER ==
[~2019-02-25] MED LIST changes: +BANO25CA PO; +BETA0.0543 TOP; +CALC0.009 TOP; +CITA40TA6 PO; +GABA600T4 PO; +TIZA2TA PO; +TRAZ-163 PO
[2019-02-25 18:09] LABS: INR 1.01; PROTHROMBIN TIME 13.4 SECONDS (12.1-14.4)
[2019-02-25 18:10] LABS: PARTIAL THROMBOPLASTIN TIME 34.3 SECONDS (25.4-37.6)
[2019-02-25 18:17] LABS: APPEARANCE, URINE HAZY (CLEAR); BACTERIA, URINE AUTO NEGATIVE (NEGATIVE); BILIRUBIN, URINE AUTO NEGATIVE (NEGATIVE); BLOOD, URINE BLOOD 3+ (NEGATIVE); COLOR, URINE YELLOW (YELLOW); GLUCOSE, URINE (UA) AUTO NEGATIVE (NEGATIVE); KETONE, URINE AUTO NEGATIVE (NEGATIVE); LEUKOCYTE ESTERASE, URINE AUTO 3+ (NEGATIVE); MUCUS, URINE SMALL (NEGATIVE); NITRITE, URINE AUTO NEGATIVE (NEGATIVE); PROTEIN, URINE AUTO 2+ mg/dL (NEGATIVE); RBC, URINE AUTO 153 /HPF (0-3); SPECIFIC GRAVITY URINE AUTO 1.018 (1.002-1.035); SQUAMOUS EPITHELIAL CELL UR AU 0 /HPF (0-6); UROBILINOGEN, URINE AUTO 0.2 mg/dL (0.0-2.0); WBC, URINE AUTO 33 /HPF (0-3)
== END ==
LOC: M LAB 16:42
PROVIDERS: ATTEND Urology
DX: Z01.818 Encounter for other preprocedural examination (principal); N13.2 Hydronephrosis with renal and ureteral calculous obstruction

== ENCOUNTER 2019-02-27 11:03 | Day surgery (SDC) | payer OTHER ==
[~2019-02-27] VITALS: Ht 180.3 cm; Wt 123.8 kg
[2019-02-27] MEDS ORDERED: ROCURONIUM BROMIDE 50 MG/5 ML VIAL As Ordered ONE (14:40)
[2019-02-27] MEDS ORDERED: dexameTHASONE 4 MG/ML 1ML VIAL (J1100) As Ordered ONE (14:41)
[2019-02-27] MEDS ORDERED: MIDAZOLAM INJ 2 MG/2 ML VIAL (J2250) As Ordered ONE (14:41)
[2019-02-27] MEDS ORDERED: ONDANSETRON 4MG/2ML VIAL (J2405) As Ordered ONE (14:41)
[2019-02-27] MEDS ORDERED: PROPOFOL 200 MG/20 ML VIAL As Ordered ONE (14:41)
[2019-02-27] MEDS ORDERED: LIDOCAINE 2% INJ 100 MG/5 ML SDV (FOR ANES.) As Ordered ONE (14:41)
[2019-02-27] MEDS ORDERED: fentaNYL 100 MCG/2 ML INJECTION (J3010) As Ordered ONE (14:41)
[2019-02-27] MEDS ORDERED: CONRAY-60 60% 50ML VIAL (Q9961) As Ordered ONE (15:01)
[2019-02-27] MEDS ORDERED: PERCOCET 5MG/325MG TAB PO PRN ×2 (16:15)
[2019-02-27] MEDS ORDERED: ONDANSETRON 4MG/2ML VIAL (J2405) IV PRN (16:15)
[2019-02-27] MEDS ORDERED: LR 1,000 ML IV SCH (16:15)
--- NOTE | 2019-02-27 16:23 | REP ---
Retrograde pyelogram: Two views. History: Left ureteral calculus. 11 seconds of fluoroscopy time is reported. Findings: A sequence of two last image hold fluoroscopically obtained spot radiographs of the left abdomen document left ureteral cannulation, contrast injection, and double pigtail stent placement. Electronically Signed by Britton Lewis MD 02/27/2019 04:28 P
[2019-02-27] MEDS: fentaNYL 100 MCG/2 ML INJECTION (J3010) IV PRN ×2 (16:37→16:42)
[2019-02-27 17:24] VITALS: BP 122/73
--- NOTE | 2019-02-28 17:58 | RO ---
DATE OF PROCEDURE: 02/27/2019 PREPROCEDURE DIAGNOSIS: Left kidney stone. POSTPROCEDURE DIAGNOSIS: Left kidney stone. PROCEDURE: Cystoscopy, left ureteroscopy with basket extraction of stones, left retrograde pyelogram with intraoperative interpretation of images, left ureteral stent exchange. SURGEON: Dr. William Calzada ZOO DIRECTOR: None. ANESTHESIA: General. OPERATIVE INDICATIONS: This is a 49-year-old male who was brought to the operating room a few weeks ago and had a left ureteral stent placed for an obstructing proximal 7 mm left ureteral stone. When the stent was placed, the stone was pushed back up into the kidney. He was brought to the operating room today to remove the stone. DESCRIPTION OF PROCEDURE: The patient was brought to the operating room and general anesthesia was induced. Prophylactic antibiotics were infused. He was then placed in the dorsal lithotomy position and prepped and draped in the usual sterile fashion. A rigid cystoscope was then inserted into the urethral meatus and advanced into the bladder. Once inside the bladder, the previously placed stent was seen. The stent was then grasped and withdrawn until the distal end was seen protruding from the urethral meatus. I then advanced a wire up the stent and into the left collecting system, and then the stent was removed completely. I then went up with the ureteral access sheath. I then went up the access sheath with a flexible ureteroscope, and within the left renal pelvis, a 7 mm stone was seen. The stone was then grasped with a basket and withdrawn completely. I examined the remainder of the kidney, and no additional stones were seen. A left retrograde pyelogram was performed and was negative for hydronephrosis or extravasation. I then withdrew the ureteroscope along with the access sheath, and no additional stones were seen within the ureter. I then utilized the wire to advance a 6-Amharic x 22-32 cm JJ ureteral stent up into the left collecting system. The wire was removed, and there were adequate curls of the stent in the left renal pelvis and in the bladder. The bladder was emptied of all fluids, and this marked the conclusion of the procedure. The patient was taken out of the dorsal lithotomy position, awakened from anesthesia and transported to the recovery room in stable condition. Estimated blood loss: 10 mL. Complications: None. Specimens: Kidney stones. PLAN: The patient will followup in the clinic in a few weeks for stent removal. JULIANA
== END 2019-02-27 17:24 | disposition home or self-care (01) ==
LOC: M SDC 11:03
PROVIDERS: ATTEND Urology
DX: N20.0 Calculus of kidney (principal); L40.9 Psoriasis, unspecified; F41.9 Anxiety disorder, unspecified; F32.9 Major depressive disorder, single episode, unspecified; Z79.899 Other long term (current) drug therapy; Z72.0 Tobacco use
CPT/HCPCS: 52332; 52352; 74420; 82360; 88300; C1769; C1894; C2617; J0690; J1100; J2250; J2405; J3010; Q9961

== ENCOUNTER 2019-04-13 12:59 | Emergency (ER) | payer MEDICAID, OTHER ==
[~2019-04-13] VITALS: Ht 180.3 cm; Wt 98.4 kg
[~2019-04-13 12:59] MED LIST changes: -TRAZ-160 PO; +TRAZ-252 PO
[2019-04-13 13:48] LABS: BASO # 0.1 10^3/uL (0.0-0.2); BASO % 0.9 % (0.0-1.0); EOS # 0.4 10^3/uL (0.0-0.50); EOS % 4.4 % (0.0-3.0); HEMOGLOBIN 15.5 g/dl (13.5-17.5); LYMPH # 2.7 10^3/uL (1.5-4.5); LYMPH % 28.1 % (24.0-44.0); MEAN CORPUSCULAR HEMOGLOBIN 32.6 pg (27.0-33.0); MEAN CORPUSCULAR HGB CONC 33.7 g/dl (32.0-36.5); MEAN CORPUSCULAR VOLUME 96.8 fl (80.0-96.0); MONO % 10.4 % (0.0-5.0); NEUTROPHILS # 5.4 10^3/uL (1.8-7.7); NEUTROPHILS % 55.9 % (36.0-66.0); PLATELET COUNT, AUTOMATED 216 10^3/uL (150-450); RED BLOOD COUNT 4.75 10^6/uL (4.30-6.10); WHITE BLOOD COUNT 9.6 10^3/uL (4.0-10.0)
[2019-04-13 14:20] LABS: ALBUMIN 3.8 GM/DL (3.2-5.2); ALT/SGPT 26 U/L (12-78); BILIRUBIN,DIRECT 0.1 MG/DL (0.0-0.2); BILIRUBIN,TOTAL 0.4 MG/DL (0.2-1.0); BLOOD UREA NITROGEN 16 MG/DL (7-18); CARBON DIOXIDE LEVEL 26 MEQ/L (21-32); CHLORIDE LEVEL 109 MEQ/L (98-107); CREATININE FOR GFR 0.84 MG/DL (0.70-1.30); GLOMERULAR FILTRATION RATE > 60.0 (>56); GLUCOSE, FASTING 101 MG/DL (70-100); LIPASE 157 U/L (73-393); POTASSIUM SERUM 4.4 MEQ/L (3.5-5.1); SODIUM LEVEL 141 MEQ/L (136-145); TOTAL PROTEIN 7.4 GM/DL (6.4-8.2)
[2019-04-13] MEDS ORDERED: KETOROLAC 30 MG/ML VIAL (J1885) IV ONE (14:30)
[2019-04-13] MEDS ORDERED: NS 1,000 ML IV ONE (14:30)
--- NOTE | 2019-04-13 15:05 | REP ---
CT ABDOMEN AND PELVIS WITHOUT CONTRAST: HISTORY: Flank pain. COMPARISON: 02/15/2019 Slight increased density is present in the gallbladder. This may be secondary to gallstones or sludge. Calcification is present in the left kidney consistent with nephrolithiasis. There is no hydronephrosis or hydroureter. The liver, pancreas, spleen, adrenal glands and right kidney are normal in appearance. There is no mass, adenopathy, or free fluid. The visualized lungs are clear. Calcification is present in the prostate gland. The urinary bladder is normal in appearance. Minimal degenerative change is present in the spine. IMPRESSION: 1. There is slight increase density in the gallbladder. This may represent gallstones or sludge. 2. Left nephrocalcinosis. There is no hydronephrosis or hydroureter. Electronically Signed by Reece Ferrer MD 04/13/2019 03:07 P
[2019-04-13] MEDS ORDERED: CYCL5TAB PO (15:13)
[2019-04-13] MEDS ORDERED: KETO10TAB PO (15:13)
[2019-04-13 15:22] VITALS: BP 124/82
== END 2019-04-13 15:24 | disposition home or self-care (01) ==
LOC: M ED 12:59
DX: M54.5 Low back pain (principal); E83.59 Other disorders of calcium metabolism; R10.2 Pelvic and perineal pain; F41.9 Anxiety disorder, unspecified; F32.9 Major depressive disorder, single episode, unspecified; Z87.442 Personal history of urinary calculi; Z72.0 Tobacco use; F12.10 Cannabis abuse, uncomplicated; Z79.899 Other long term (current) drug therapy
CPT/HCPCS: 74176; 80048; 80076; 81001; 83690; 85025; 96361; 96374; 99284; J1885

== ENCOUNTER → 2019-04-23 | Outpatient (CLI) | payer OTHER ==
[~2019-04-23] MED LIST changes: +CYCL5TAB PO; +KETO10TAB PO
[2019-04-23 15:10] LABS: HEMOGLOBIN A1c 5.7 %
--- NOTE | 2019-04-23 16:43 | REP ---
REASON: Midline back pain. COMPARISON: 06/22/2016 Once again, there is L4-5 disc space narrowing particularly posterior and increased from the prior exams. Mild posterior disc space narrowing is seen at all levels also increased slightly from the prior exam. Degenerative facet joint changes are again seen bilaterally L4-5 and L5-S1 increased from the prior exam. Minimal L4 and L5 retrolisthesis of 3 mm is also unchanged. IMPRESSION:Chronic changes as described above. Electronically Signed by Abelino West DO 04/24/2019 12:18 P
== END ==
LOC: M LAB 13:26
PROVIDERS: ATTEND Student in an Organized Health Care Education/Training Program
DX: R73.9 Hyperglycemia, unspecified (principal); M51.36 Other intervertebral disc degeneration, lumbar region; M51.37 Other intervertebral disc degeneration, lumbosacral region

== ENCOUNTER → 2019-06-27 | Outpatient (REF) | payer OTHER ==
[~2019-06-27] MED LIST changes: +MAPA500C PO; -TRAZ-163 PO; +TRAZ-257 PO
[2019-06-27 13:02] LABS: HEPATITIS B SURFACE ANTIBODY NEGATIVE (POSITIVE); HEPATITIS B SURFACE ANTIGEN NEGATIVE (NEGATIVE); HEPATITIS C VIRUS ABY INDEX 0.1 INDEX (<0.8); HIV 1&2 SCREEN CENTAUR NEGATIVE (NEGATIVE)
== END ==
LOC: M SFHCPLAZ 09:15
PROVIDERS: ATTEND Dermatology
DX: Z51.81 Encounter for therapeutic drug level monitoring (principal); Z79.899 Other long term (current) drug therapy

== ENCOUNTER → 2019-09-08 | Outpatient (REF) | payer OTHER ==
[~2019-09-08] MED LIST changes: +TRAZ-163 PO; -TRAZ-257 PO
[2019-09-08 17:48] LABS: HEMATOCRIT 48.9 % (42.0-52.0); HEMOGLOBIN 15.9 g/dl (13.5-17.5); MEAN CORPUSCULAR HEMOGLOBIN 32.7 pg (27.0-33.0); MEAN CORPUSCULAR HGB CONC 32.5 g/dl (32.0-36.5); MEAN CORPUSCULAR VOLUME 100.6 fl (80.0-96.0); PLATELET COUNT, AUTOMATED 243 10^3/uL (150-450); RED BLOOD COUNT 4.86 10^6/uL (4.30-6.10); WHITE BLOOD COUNT 11.5 10^3/uL (4.0-10.0)
[2019-09-08 17:52] LABS: ALBUMIN 3.8 GM/DL (3.2-5.2); ALT/SGPT 21 U/L (12-78); BILIRUBIN,TOTAL 0.4 MG/DL (0.2-1.0); BLOOD UREA NITROGEN 11 MG/DL (7-18); CALCIUM LEVEL 8.9 MG/DL (8.5-10.1); CARBON DIOXIDE LEVEL 31 MEQ/L (21-32); CHLORIDE LEVEL 107 MEQ/L (98-107); CHOLESTEROL LEVEL 188 MG/DL (<200); CHOLESTEROL RISK RATIO 4.086 (<5); CREATININE FOR GFR 1.01 MG/DL (0.70-1.30); GLOMERULAR FILTRATION RATE > 60.0 (>56); GLUCOSE, FASTING 110 MG/DL (70-100); HDL CHOLESTEROL 46 MG/DL (>40); LDL CHOLESTEROL 109 MG/DL (<100); NON-HDL-C 142 MG/DL; POTASSIUM SERUM 4.4 MEQ/L (3.5-5.1); SODIUM LEVEL 144 MEQ/L (136-145); TOTAL PROTEIN 7.3 GM/DL (6.4-8.2); TRIGLYCERIDES LEVEL 165 MG/DL (<150)
== END ==
LOC: M SFHCPLAZ 14:38
PROVIDERS: ATTEND Dermatology
DX: Z51.81 Encounter for therapeutic drug level monitoring (principal); Z79.899 Other long term (current) drug therapy; Z13.220 Encounter for screening for lipoid disorders

== ENCOUNTER 2019-10-09 22:22 | Emergency (ER) | payer MEDICAID, OTHER ==
[~2019-10-09] VITALS: Ht 152.4 cm; Wt 102.0 kg
[2019-10-09] MEDS ORDERED: ASPIRIN 81 MG CHEW TABLET As Ordered ONE (22:33)
[2019-10-09] MEDS ORDERED: HEPARIN DRIP 25,000 UNITS in IV 1 EA IV SCH (22:35)
[2019-10-09] MEDS ORDERED: HEPARIN SOD (PORCINE) 5000 UNITS/ML VIAL IV ONE (22:45)
[2019-10-09] MEDS ORDERED: ASPIRIN 81 MG CHEW TABLET PO ONE (22:45)
[2019-10-09] MEDS ORDERED: TENECTEPLASE 50 MG KIT (TNKase) (J3101 PER 1MG) IV ONE (22:45)
[2019-10-09] MEDS ORDERED: NITROGLYCERIN 0.4 MG SUBL TABLET SL PRN (22:45)
[2019-10-09] MEDS ORDERED: CLOPIDOGREL 300 MG TAB (PLAVIX) PO ONE (22:45)
[2019-10-09 22:46] LABS: HEMATOCRIT 48.8 % (42.0-52.0); HEMOGLOBIN 16.1 g/dl (13.5-17.5); MEAN CORPUSCULAR HEMOGLOBIN 32.5 pg (27.0-33.0); MEAN CORPUSCULAR VOLUME 98.6 fl (80.0-96.0); PLATELET COUNT, AUTOMATED 232 10^3/uL (150-450); RED BLOOD COUNT 4.95 10^6/uL (4.30-6.10)
[2019-10-09 22:48] LABS: WHITE BLOOD COUNT 12.5 10^3/uL (4.0-10.0)
[2019-10-09] MEDS: MORPHINE 2 MG/ML 1ML VIAL (J2270) IV PRN ×2 (22:50→23:22)
[2019-10-09 22:58] LABS: INR 1.04; PARTIAL THROMBOPLASTIN TIME 33.8 SECONDS (25.0-38.4); PROTHROMBIN TIME 13.3 SECONDS (11.8-14.0)
[2019-10-09 23:10] LABS: ATYPICAL LYMPH 22 % (0-5); BASOPHILS 1 % (0-1); EOSINOPHILS 2 % (0-3); LYMPHOCYTES 34 % (16-44); MONOCYTES 6 % (0-5); NEUTROPHILS 35 % (28-66); PLATELET CLUMPS SMALL AMT; PLATELET ESTIMATE NORMAL (NORMAL); TOXIC VACUOLATION 1+
[2019-10-09 23:12] LABS: BLOOD UREA NITROGEN 13 MG/DL (7-18); CARBON DIOXIDE LEVEL 28 MEQ/L (21-32); CHLORIDE LEVEL 106 MEQ/L (98-107); CK-MB VALUE MASS < 1.0 NG/ML (<3.6); CPK CREATINE PHOSPHOKINASE 105 U/L (39-308); CREATININE FOR GFR 1.14 MG/DL (0.70-1.30); GLOMERULAR FILTRATION RATE > 60.0 (>56); GLUCOSE, FASTING 108 MG/DL (70-100); MB/CK RELATIVE INDEX 0.95 (< OR =4); POTASSIUM SERUM 3.7 MEQ/L (3.5-5.1); SODIUM LEVEL 142 MEQ/L (136-145); TROPONIN I 0.02 NG/ML (< 0.10)
[2019-10-09 23:13] LABS: SMUDGE CELLS 1+
[2019-10-09] MEDS ORDERED: NITROGLYCERIN 2% OINT 1 GM *U/D* PKT As Ordered ONE (23:25)
[2019-10-09 23:28] VITALS: BP 130/85
[2019-10-09] MEDS ORDERED: NITROGLYCERIN 2% OINT 1 GM *U/D* PKT TOP ONE (23:30)
[2019-10-09 23:33] VITALS: BP 130/85
--- NOTE | 2019-10-10 05:48 | ECGEPIP ---
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
--- NOTE | 2019-10-10 08:18 | REP ---
Clinical: Chest pain. Comparison: 02/15/2019. Findings: Examination is limited by portable technique, underpenetration, and poor inspiratory effort which accentuate the pulmonary vasculature and interstitium. Mild interstitial edema cannot be excluded. No focal consolidation. No obvious effusion. No pneumothorax. Skeletal structures intact. Evidence for prior cervical fixation. Impression: Limited examination. Cannot exclude interstitial edema. No focal consolidation or effusion. Electronically Signed by Josue Loredo MD 10/10/2019 08:11 A
== END 2019-10-09 23:36 | disposition short-term general hospital (02) ==
LOC: M ED 22:22
DX: I21.3 ST elevation (STEMI) myocardial infarction of unspecified site (principal); I44.0 Atrioventricular block, first degree; I45.89 Other specified conduction disorders; I21.9 Acute myocardial infarction, unspecified; M54.2 Cervicalgia; L40.9 Psoriasis, unspecified; F41.9 Anxiety disorder, unspecified; F32.9 Major depressive disorder, single episode, unspecified; F17.200 Nicotine dependence, unspecified, uncomplicated
CPT/HCPCS: 71045; 80048; 82550; 82553; 85025; 85610; 85730; 93005; 93041; 94760; 96374; 96375; 96376; 99285; J2270; J3101

== ENCOUNTER → 2019-12-09 | Outpatient (CLI) | payer OTHER ==
[~2019-12-09] MED LIST changes: -TRAZ-163 PO; +TRAZ-257 PO
--- NOTE | 2019-12-10 04:51 | REP ---
Clinical: thromboembolic disease . Technique: Wallace scale and color Doppler evaluation of the bilateral lower extremities using linear high frequency transducer. Findings: Ultrasound examination of the right and left lower extremity deep venous structures from the common femoral vein to the popliteal vein demonstrates normal compressibility flow and wave patterns in response to respiration and augmentation. There is no evidence for deep venous thrombosis. Impression: No evidence for deep venous thrombosis bilateral lower extremities . Electronically Signed by Josue Loredo MD 12/10/2019 04:43 A
== END ==
LOC: M RAD 13:09
PROVIDERS: ATTEND Internal Medicine
DX: I74.9 Embolism and thrombosis of unspecified artery (principal)

== ENCOUNTER → 2020-01-19 | Outpatient (CLI) | payer OTHER | LOC: M LAB 11:58 | PROVIDERS: ATTEND Internal Medicine | DX: I74.9 Embolism and thrombosis of unspecified artery (principal) ==

== ENCOUNTER 2020-02-26 17:10 | Emergency (ER) | payer MEDICAID, OTHER ==
[~2020-02-26] VITALS: Ht 180.3 cm; Wt 97.3 kg
[2020-02-26] MEDS ORDERED: CELE40TA (17:19)
[2020-02-26] MEDS ORDERED: GABA600T4 (17:19)
[2020-02-26] MEDS ORDERED: ELIQ5TAB (17:19)
[2020-02-26] MEDS ORDERED: ATOR40TA75 (17:19)
[2020-02-26] MEDS ORDERED: TRAM50TA2 (17:19)
[2020-02-26] MEDS ORDERED: ISOVUE-370 76% 100ML VIAL As Ordered ONE (17:57)
[2020-02-26] MEDS ORDERED: LIDOCAINE 4% CREAM 5GM (LMX4) TOP ONE (18:45)
--- NOTE | 2020-02-26 18:49 | REPVR ---
PROCEDURE INFORMATION: Exam: CT Angiography Neck With Contrast Exam date and time: 02/26/2020 6:13 PM Age: 50 years old Clinical indication: Other: Sharp burning pain R low neck; Prior surgery; Surgery date: 6+ months; Surgery type: Cervical fusion; Additional info: Yawned, sharp burning pain R low neck, HX cervical fusion TECHNIQUE: Imaging protocol: Computed tomography angiography of the neck with intravenous contrast. 3D rendering: MIP and/or 3D reconstructed images were created by the technologist. Radiation optimization: All CT scans at this facility use at least one of these dose optimization techniques: automated exposure control; mA and/or kV adjustment per patient size (includes targeted exams where dose is matched to clinical indication); or iterative reconstruction. Contrast material: ISOVUE 370; Contrast volume: 75 ml; Contrast route: IV; COMPARISON: CT Neck with contrast 12/31/2017 12:42 PM FINDINGS: Right common carotid artery: No stenosis. No dissection or occlusion. Right internal carotid artery: No stenosis of the extracranial segment. No dissection or occlusion. Right external carotid artery: No occlusion or stenosis of the origin. Right vertebral artery: Right vertebral artery is dominant. Left common carotid artery: No stenosis. No dissection or occlusion. Left internal carotid artery: No stenosis of the extracranial segment. No dissection or occlusion. Left external carotid artery: No occlusion or stenosis of the origin. Left vertebral artery: Left vertebral artery arises from the aortic arch. Bones/joints: There are degenerative and postoperative changes involving the spine. Soft tissues: Normal. No significant soft tissue swelling. IMPRESSION: No stenosis (0%) or dissection. REFERENCES: NASCET CRITERIA. The degree of internal carotid artery stenosis is based on NASCET criteria. Normal is no stenosis. Mild is less than 50% stenosis. Moderate is 50-69% stenosis. Severe is 70% to 99% stenosis. Total occlusion is no detectable patent lumen. Electronically signed by: Celso Foreman On 02/26/2020 18:49:41 PM
[2020-02-26] MEDS ORDERED: ANEC4CRE3 TOP (19:03)
[2020-02-26 19:10] VITALS: BP 110/76
== END 2020-02-26 19:14 | disposition home or self-care (01) ==
LOC: M ED 17:10
DX: S16.1XXA Strain of muscle, fascia and tendon at neck level, initial encounter (principal); X50.1XXA Overexertion from prolonged static or awkward postures, initial encounter; Y92.89 Other specified places as the place of occurrence of the external cause; I10 Essential (primary) hypertension; I25.2 Old myocardial infarction; M54.2 Cervicalgia; Z87.442 Personal history of urinary calculi; F17.200 Nicotine dependence, unspecified, uncomplicated; Z98.1 Arthrodesis status; Z79.899 Other long term (current) drug therapy; Z79.01 Long term (current) use of anticoagulants; Z79.891 Long term (current) use of opiate analgesic
CPT/HCPCS: 70498; 99284; Q9967

== ENCOUNTER → 2020-03-30 | Outpatient (CLI) | payer OTHER ==
[~2020-03-30] MED LIST changes: +ANEC4CRE3 TOP; +ATOR40TA75; +CELE40TA; +ELIQ5TAB; +GABA600T4; +TRAM50TA2
--- NOTE | 2020-03-31 02:00 | REP ---
Clinical: Neck pain. Prior surgery. Technique: AP and lateral views of the cervical spine. Comparison: 01/09/2019. Findings: Anterior fixation spans C4 - C7. Bilateral posterior Magallanes rods spanning C2 - C6. Alignment is maintained. No progressive arthritic or degenerative changes are noted. Prevertebral soft tissues are normal. Impression: Stable examination. Electronically Signed by Josue Loredo MD 03/31/2020 01:53 A
== END ==
LOC: M RAD 14:06
PROVIDERS: ATTEND Physician Assistant
DX: Z98.1 Arthrodesis status (principal)

== ENCOUNTER → 2020-04-15 | Outpatient (CLI) | payer OTHER, MEDICAID ==
[2020-04-15 12:34] LABS: BLOOD UREA NITROGEN 11 MG/DL (7-18); CALCIUM LEVEL 8.7 MG/DL (8.5-10.1); CARBON DIOXIDE LEVEL 30 MEQ/L (21-32); CHLORIDE LEVEL 106 MEQ/L (98-107); CREATININE FOR GFR 1.02 MG/DL (0.70-1.30); GLOMERULAR FILTRATION RATE > 60.0 (>56); GLUCOSE, FASTING 99 MG/DL (70-100); POTASSIUM SERUM 4.4 MEQ/L (3.5-5.1); SODIUM LEVEL 140 MEQ/L (136-145)
[2020-04-15 12:35] LABS: CPK CREATINE PHOSPHOKINASE 106 U/L (39-308)
== END ==
LOC: M LAB 10:44
PROVIDERS: ATTEND Internal Medicine Cardiovascular Disease
DX: I24.0 Acute coronary thrombosis not resulting in myocardial infarction (principal); I21.02 ST elevation (STEMI) myocardial infarction involving left anterior descending coronary artery; E78.5 Hyperlipidemia, unspecified; Z72.0 Tobacco use

== ENCOUNTER 2020-04-28 21:02 | Emergency (ER) | payer OTHER, MEDICAID ==
[~2020-04-28] VITALS: Ht 180.3 cm; Wt 94.1 kg
[2020-04-28 21:39] LABS: BASO # 0.1 10^3/uL (0.0-0.2); EOS # 0.1 10^3/uL (0.0-0.5); EOS % 1.2 % (0.0-3.0); HEMATOCRIT 50.6 % (42.0-52.0); HEMOGLOBIN 17.1 g/dl (13.5-17.5); LYMPH # 2.8 10^3/uL (1.5-5.0); MEAN CORPUSCULAR HEMOGLOBIN 31.8 pg (27.0-33.0); MEAN CORPUSCULAR HGB CONC 33.8 g/dl (32.0-36.5); MEAN CORPUSCULAR VOLUME 94.1 fl (80.0-96.0); MONO # 1.3 10^3/uL (0.0-0.8); NEUTROPHILS # 6.1 10^3/uL (1.5-8.5); NEUTROPHILS % 58.6 % (36.0-66.0); PLATELET COUNT, AUTOMATED 253 10^3/uL (150-450); RED BLOOD COUNT 5.38 10^6/uL (4.30-6.10); WHITE BLOOD COUNT 10.4 10^3/uL (4.0-10.0)
[2020-04-28] MEDS: NITROGLYCERIN 0.4 MG SUBL TABLET SL PRN ×3 (21:41→21:52)
[2020-04-28 21:50] LABS: INR 1.12; PROTHROMBIN TIME 14.1 SECONDS (11.8-14.0)
[2020-04-28 21:51] LABS: PARTIAL THROMBOPLASTIN TIME 31.8 SECONDS (25.0-38.4)
[2020-04-28 21:52] VITALS: BP 126/69
[2020-04-28 21:58] LABS: ALBUMIN 3.8 GM/DL (3.2-5.2); ALT/SGPT 17 U/L (12-78); BILIRUBIN,DIRECT 0.2 MG/DL (0.0-0.2); BILIRUBIN,TOTAL 0.8 MG/DL (0.2-1.0); BLOOD UREA NITROGEN 15 MG/DL (7-18); CALCIUM LEVEL 9.6 MG/DL (8.5-10.1); CARBON DIOXIDE LEVEL 23 MEQ/L (21-32); CHLORIDE LEVEL 110 MEQ/L (98-107); CREATININE FOR GFR 1.15 MG/DL (0.70-1.30); GLOMERULAR FILTRATION RATE > 60.0 (>56); GLUCOSE, FASTING 96 MG/DL (70-100); LIPASE 67 U/L (73-393); NT-PRO BNP 129 PG/ML (<125); SODIUM LEVEL 139 MEQ/L (136-145); TOTAL PROTEIN 7.6 GM/DL (6.4-8.2)
[2020-04-29 02:00] VITALS: BP 108/78
--- NOTE | 2020-04-29 07:16 | ECGEPIP ---
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
--- NOTE | 2020-04-29 07:20 | ECGEPIP ---
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
--- NOTE | 2020-04-29 07:25 | ECGEPIP ---
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
--- NOTE | 2020-04-29 08:22 | REP ---
Portable chest x-ray: Single view. History: Chest pain. Comparison chest x-ray: October 09, 2019. Findings: There is mild linear fibrosis in the left base. Lung mcdonough are otherwise clear. Pleural angles are sharp. The heart is not enlarged. Pulmonary vasculature is not increased. The patient is status post cervical spine fusion plating. Impression: Linear fibrosis left base. Otherwise no acute disease. Electronically Signed by Britton Lewis MD 04/29/2020 08:13 A
== END 2020-04-29 02:17 | disposition home or self-care (01) ==
LOC: EDBD 21:02 → M ED 21:02
DX: R07.89 Other chest pain (principal); F41.9 Anxiety disorder, unspecified; I45.89 Other specified conduction disorders; R00.1 Bradycardia, unspecified; I25.10 Atherosclerotic heart disease of native coronary artery without angina pectoris; I25.2 Old myocardial infarction; Z95.5 Presence of coronary angioplasty implant and graft; F17.200 Nicotine dependence, unspecified, uncomplicated; J98.4 Other disorders of lung; Z79.01 Long term (current) use of anticoagulants; Z79.899 Other long term (current) drug therapy